=== PATIENT | female | born 1940 | race Caucasian/White ===

== ENCOUNTER 2020-05-25 04:45 | Inpatient (IN) | payer MEDICARE, OTHER, SELFPAY ==
[2020-05-25] VITALS (7 sets, daily range): BP systolic 120–146; BP diastolic 40–58; PULSE 71–90; RESP 16–20; TEMP 36.9–38.6; O2SAT 96–100; BMI 26.9; BMI 27.0
--- NOTE | 2020-05-25 03:58 | PCS.PANDOC ---
PANDEMIC DOCUMENTATION INITIATED: Date: 05/25/20 Time: 3027
--- NOTE | 2020-05-25 04:37 | HP.PCM_ITS ---
Problem List (1) UTI (urinary tract infection) Status: Acute (2) Generalized weakness Status: Acute History of Present Illness Date of Admission: 05/25/20 Chief Complaint: generalized weakness The patient is a 80 year old male patient who lives at home presented to the emergency room at [facility] due to generalized weakness and subtle confusion under the advice of her family. There she was tested for Covid and was negative but she was diagnosed with urinary tract infection. She denies chest pain shortness of breath no nausea or vomiting. She does have some mild left flank tenderness. Onset of her generalized weakness symptoms appears to be over the course of the past week. The patient is a questionable historian at this point. Other laboratory studies were unremarkable at outside hospital. She will be admitted for observation and management of urinary tract infection and evaluate her weakness after those are treated. Past Medical History Allergies No Known Allergies Allergy (Verified 05/25/20 04:03) Home Medications: Ambulatory Orders Medication Instructions Recorded Allopurinol [Zyloprim] 100 mg PO DAILYCM 05/25/20 Atenolol [Tenormin (beta vida)] 05/25/20 Dicyclomine HCl [Bentyl] 10 mg PO Q6H PRN PRN 05/25/20 Glipizide 5 mg PO DAILY 05/25/20 Hydrochlorothiazide [Hctz] 25 mg PO DAILY 05/25/20 Lisinopril [Zestril] 20 mg PO DAILY 05/25/20 Loperamide [Imodium] 4 mg PO Q4H PRN PRN 05/25/20 Sulfasalazine [Azulfidine] 1,000 mg PO DAILY 05/25/20 Warfarin [Coumadin (PBKC)] 5 mg PO DAILY 05/25/20 Smoking Status: Never smoker - *Family History Maternal History Items: No pertinent history Review of Systems Constitutional: Reports: Fever, Weakness. Denies: Chills, Weight Change HEENT: Denies: Head Aches, Sinus Congestion, Sinus Drainage Cardiovascular: Denies: Chest Pain, Palpitations Respiratory: Denies: Cough, Shortness of breath at rest, Sputum production Gastrointestinal: Denies: Abdominal Pain, Nausea, Vomiting Genitourinary: Reports: Dysuria, - - left flank soreness Musculoskeletal: Denies: Joint Pain, Joint Tenderness Skin: Denies: Rash, Wounds Neurological: Denies: Numbness, Tingling, Focal weakness Psychiatric: Denies: Anxiety, Depression, Homicidal Ideations, Suicidal Ideations Hematologic/ Lymphatic: Denies: Easy Bruising, Easy Bleeding VTE Information - Inpt Only VTE Present on Admission: No VTE Mechan Device Prophylaxis: SCD's, None VTE Pharm Prophylaxis ordered?: No - Physical Exam Vitals/I&O's: Vital Signs Temp Pulse Resp BP Pulse Ox 99.4 F H 71 18 130/57 H 100 05/25/20 03:56 05/25/20 03:56 05/25/20 03:56 05/25/20 03:56 05/25/20 03:56 Oxygen Delivery Method Room Air Weight: 162 lb 0.636 oz Body Mass Index (BMI) 26.9 General: Alert, Oriented x3, Cooperative, - - weak/tired HEENT: Atraumatic, Normocephalic Neck: Supple Lungs: Clear to auscultation, Normal air movement, No rhonchi, No wheeze, No rales Cardiovascular: Regular rate, Regular Rhythm, Normal S1, No murmurs Abdomen: Bowel Sounds Present, Soft, Non Tender, Tender - left flank mild Extremities: No edema Skin: No rashes Musculoskeletal: No Tenderness to Palpation of Joints or Extremities Neurological: Neuro grossly intact Psych/Mental Status: Normal Affect, Appropriate Assessment/Plan All Active Problems UTI (urinary tract infection) (Acute) Generalized weakness (Acute) Plan 1. Generalized weakness/UTI?admit patient to general medical floor for observation?IV Rocephin 1 g daily, will start IV fluid normal saline at 100 cc/h. Will receive Doug CBC BMP in the morning, I am informed patient has failed her bedside swallow evaluation and will be made n.p.o. at this time pending speech therapy evaluation. We will also consult case management for discharge planning. 2. Acute kidney injury?repeat basic metabolic panel to evaluate further 3. DVT prophylaxis?SCDs
[2020-05-25] MEDS: 0.9% Saline Lock 10 ML Syringe IV (05:16)
[2020-05-25] MEDS: 0.9% Normal Saline 1,000 ML 100 ML IV ×2 (05:16→16:43)
[2020-05-25 06:49] LABS: Absolute Lymphocyte Count 0.64 X10^3/uL (0.83-4.51); Absolute Neutrophil Count 2.3 X10^3/uL (2.0-7.7); Basophil# 0.02 X10^3/uL; Basophil% 0.6 % (0-1); Eosinophil# 0.01 X10^3/uL; Eosinophils% 0.3 % (0-5); Hematocrit 29.9 % (37-47); Hemoglobin 9.8 g/dL (12.0-15.0); Lymphocyte # 0.64 X10^3/ul (4.0); Lymphocyte % 18.6 % (19-41); Mean Corp Hgb Conc 32.8 g/dL (32-36); Mean Corpuscular Hgb 31.5 pg (27.0-32.0); Mean Corpuscular Volume 96.1 fL (81-99); Mean Platelet Vol. 9.4 fl (6.2-12.0); Monocyte# 0.48 X10^3/uL; NRBC Flagged by Analyzer 0 % (0-5); Neutrophil # 2.25 X10^3/uL (2.7-7.7); Neutrophil % 65.3 % (47-70); Platelet Count 159 K/mm3 (150-450); RBC Distribution Width SD 49.3 fl (35.1-43.9); Red Blood Count 3.11 M/mm3 (4.2-5.4); White Blood Count 3.4 K/mm3 (4.4-11.0)
[2020-05-25 07:10] LABS: International Normalized Ratio 1.4; Prothrombin Time (Protime)PT. 16.7 SECONDS (11.7-14.9)
[2020-05-25 07:16] LABS: Anion Gap 8 (5-15); BUN 37 mg/dL (7-18); BUN/Creat Ratio 24.2 RATIO (10-20); Calcium,Total 8.5 mg/dL (8.5-10.1); Chloride 112 mmol/L (98-107); Creatinine, Serum 1.53 mg/dL (0.55-1.02); EST Glomerular Filtration Rate 35 mL/min (>60); Est Glom Filt Rate - Afr Amer 42 mL/min (>60); Estimated Creatinine Clearance 25.95 ml/min; Glucose 112 mg/dL (74-106); Potassium 4.2 mmol/L (3.5-5.1); Sodium Level 140 mmol/L (136-145)
--- NOTE | 2020-05-25 07:39 | PCM.PN.BLA ---
Progress Note Patient is an 80-year-old lady admitted with progressive generalized weakness patient had apparently been treated for UTI as outpatient. Kidney function was impaired at the time of admission 1. Adult failure to thrive 2. Acute cystitis 3. Acute kidney injury 4. Essential hypertension 5. Diabetes mellitus type 2 6. Gout 7. Systemic use of anticoagulation STROKE Vital Signs/Narrative: Vital Signs Temp Pulse Resp BP Pulse Ox 05/25/20 03:56 99.4 F H 71 18 130/57 H 100
--- NOTE | 2020-05-25 09:12 | NURSING ---
Bladder scan done prior to cath pt for a urine specimen, bladder is empty, she had a very wet attends when she was assisted to the bsc.
[2020-05-25] MEDS: Acetaminophen 325 MG Tablet 650 MG PO ×2 (10:02→17:37)
[2020-05-25] MEDS: Allopurinol 100 MG Tablet PO (10:03)
--- NOTE | 2020-05-25 10:28 | PN_ITS ---
Patient Problems: Active and Suspected Problems UTI (urinary tract infection) (Acute) Generalized weakness (Acute) Reason for Visit: Acute cystitis Acute kidney injury Physical deconditioning Diarrhea Subjective: Patient is an 80-year-old lady admitted with progressive generalized weakness patient had apparently been treated for UTI as outpatient. Kidney function was impaired at the time of admission Objective: GENERAL: cooperative HEENT: Atraumatic; EYES; Anicteric, Normal Conjunctiva NECK; supple, normal thyroid, RESPIRATORY: Diminished to auscultation CARDIOVASCULAR: Regular S1 S2, GI: soft, normoactive bowel sounds, : No Renal angle tenderness; EXTREMITIES: No edema, no clubbing, MUSCULOSKELETAL: no muscle waisting NEURO: Awake; no lateralizing signs. SKIN: No Rash PSYCH; Flat affect Vitals/I&O's: Vital Signs Temp Pulse Resp BP Pulse Ox 101.4 F H 90 20 H 140/47 H 97 05/25/20 08:55 05/25/20 08:59 05/25/20 08:55 05/25/20 08:55 05/25/20 08:55 Oxygen Delivery Method Room Air Weight: 73.5 kg Body Mass Index (BMI) 26.9 Laboratory Results 05/25/20 06:30: WBC 3.4 L, RBC 3.11 L, Hgb 9.8 L, Hct 29.9 L, MCV 96.1, MCH 31.5, MCHC 32.8, RDW Std Deviation 49.3 H, RDW Coeff of Brisa 14.0, Plt Count 159, MPV 9.4, Immature Gran % (Auto) 1.200 H, Neut % (Auto) 65.3, Lymph % (Auto) 18.6 L, Wolfe % (Auto) 14.0 H, Eos % (Auto) 0.3, Baso % (Auto) 0.6, Absolute Neuts (auto) 2.3, Absolute Lymphs (auto) 0.64 L, Nucleated RBC % 0 05/25/20 06:30: PT 16.7 H, INR 1.4 05/25/20 06:30: Sodium 140, Potassium 4.2, Chloride 112 H, Carbon Dioxide 20.0 L , Anion Gap 8, BUN 37 H, Creatinine 1.53 H, Estim Creat Clear Calc 25.95, Est GFR (MDRD) Af Amer 42 L, Est GFR (MDRD) Non-Af 35 L, BUN/Creatinine Ratio 24.2 H , Glucose 112 H, Calcium 8.5 Current Medications Acetaminophen (Acetaminophen 325 Mg Tablet) 650 mg PO Q6H PRN PRN PRN Reason: Pain 1-10 or Fever Last Admin: 05/25/20 10:02 Dose: 650 mg Documented by: Allopurinol (Allopurinol 100 Mg Tablet) 100 mg PO DAILYCM [facility] Last Admin: 05/25/20 10:03 Dose: 100 mg Documented by: Sodium Chloride () 1,000 mls @ 100 mls/hr IV .Q10H [facility] Last Admin: 05/25/20 05:16 Dose: 100 mls/hr Documented by: Sodium Chloride () 250 mls @ 15 mls/hr IV .[id number] PRN PRN Reason: Saline Flush Sodium Chloride () 250 mls @ 15 mls/hr IV .[id number] PRN PRN Reason: Additional IVPB Infusion Ceftriaxone Sodium (Rocephin) 1 gm in 50 mls @ 100 mls/hr IV Q24@2200 [facility] Sodium Chloride (0.9% Saline Lock 10 Ml Syringe) 10 - 40 ml IV UD PRN PRN Reason: SALINE FLUSH Last Admin: 05/25/20 05:16 Dose: 10 ml Documented by: Sulfasalazine (Sulfasalazine 500 Mg Tablet) 1,000 mg PO DAILY [facility] Warfarin Sodium (Warfarin 5 Mg Tablet) 5 mg PO DAILY@1700 [facility] STROKE Vital Signs/Narrative: Vital Signs Temp Pulse Resp BP Pulse Ox 05/25/20 08:59 90 05/25/20 08:55 101.4 F H 85 20 H 140/47 H 97 Medical Necessity - Tobacco Use Smoking Status: Never smoker Assessment/Plan All Active Problems UTI (urinary tract infection) (Acute) Generalized weakness (Acute) Patient is an 80-year-old lady admitted with progressive generalized weakness patient had apparently been treated for UTI as outpatient. Kidney function was impaired at the time of admission 1. Acute cystitis ?Patient started on Rocephin blood and urine culture sent with plans to adjust or continue current antibiotics based on culture result - 2. Kidney injury ?Patient started on IV hydration with subsequent monitoring of electrolyte 3. Diarrhea ?Patient being resuscitated with IV fluids stool sent to rule out C. difficile 4. Hypertension - Blood pressure controlled, home medications continued with dose adjustment as needed 5. Diabetes mellitus type II -patient's oral hypoglycemics held. Placed on long acting insulin, Accu-Cheks a.c. and at bedtime and covered with sliding scale insulin 6. Gout ?patient is on allopurinol did continue 7. Anemia - Secondary to chronic disorder monitoring H&H and transfuse if patient becomes symptomatic or hemoglobin falls below 7 8. History of previous PE/DVT ?Patient is on systemic anticoagulation with Coumadin INR is therapeutic 9. Physical deconditioning - Requested for PT OT eval and social media content specialist to assist with discharge planning Advance planning; did discuss with the patient regarding advanced directives as well as CODE STATUS. Did explain the various scenarios involved ( FULL CODE, DNR CCA, DNR CCA with no intubation, and DNR CC and what each meant) patient elected to full code with CPR and intubation if warranted. Order was placed. Time spent on discussion 18 minutes. Inpatient E&M: 87918 Subs Hosp L3 Procedures: 07943 Advncd Care Plan 30 Min
[2020-05-25 10:58] LABS: Mucous, Urine 0 SEEN /hpf (<or=2+)
[2020-05-25 11:35] LABS: Color, Urine Yellow (Yellow); Glucose, Dipstick Normal (Normal); Ketone-Dipstick Negative (Negative); Leukocyte Esterase-Dipstick 500 /ul (Negative); Nitrite-Dipstick Negative (Negative); Occult Blood-Urine 150 /ul (Negative); Protein-Dipstick 100 mg/dl (Negative); Urine Bilirubin Dipstick Negative (Negative); Urine Clarity Sl. Cloudy (Clear); Urine Urobilinogen Normal (Normal)
[2020-05-25 11:48] LABS: Bacteria 1+ /hpf (None Seen); Red Blood Cells-Urine 10-25 SEEN /hpf (0-5); Squamous Epithelial Cells - UA 0-5 SEEN /hpf (5-10); White Blood Cells 25-50 SEEN /hpf (0-5)
[2020-05-25] MEDS: Ceftriaxone 1 GM/50 ML BAG IV (21:52)
[2020-05-26] VITALS (9 sets, daily range): BP systolic 125–160; BP diastolic 41–79; PULSE 89–105; RESP 13–18; TEMP 37.2–39.2; O2SAT 94–97
[2020-05-26] MEDS: Acetaminophen 325 MG Tablet 650 MG PO ×3 (03:47→17:41)
[2020-05-26 05:46] LABS: Hematocrit 28.8 % (37-47); Hemoglobin 9.5 g/dL (12.0-15.0); Mean Corpuscular Hgb 31.5 pg (27.0-32.0); Mean Corpuscular Volume 95.4 fL (81-99); Mean Platelet Vol. 9.5 fl (6.2-12.0); Platelet Count 141 K/mm3 (150-450); RBC Distribution Width CV 13.8 % (11.6-14.6); Red Blood Count 3.02 M/mm3 (4.2-5.4); White Blood Count 2.8 K/mm3 (4.4-11.0)
[2020-05-26] MEDS: 0.9% Normal Saline 1,000 ML 100 ML IV ×2 (05:56→21:50)
[2020-05-26 05:57] LABS: International Normalized Ratio 1.4; Prothrombin Time (Protime)PT. 16.4 SECONDS (11.7-14.9)
[2020-05-26 06:13] LABS: Anion Gap 8 (5-15); BUN 29 mg/dL (7-18); Calcium,Total 7.9 mg/dL (8.5-10.1); Chloride 113 mmol/L (98-107); Creatinine, Serum 1.38 mg/dL (0.55-1.02); EST Glomerular Filtration Rate 39 mL/min (>60); Est Glom Filt Rate - Afr Amer 47 mL/min (>60); Estimated Creatinine Clearance 28.77 ml/min; Glucose 137 mg/dL (74-106); Magnesium 1.3 mg/dL (1.6-2.6); Potassium 3.9 mmol/L (3.5-5.1); Sodium Level 139 mmol/L (136-145)
--- NOTE | 2020-05-26 07:33 | PCM.PN.HOSP ---
Patient Problems: Active and Suspected Problems UTI (urinary tract infection) (Acute) Generalized weakness (Acute) Reason for Visit: Acute cystitis Acute kidney injury Physical deconditioning Diarrhea Subjective: Patient is an 80-year-old lady admitted with progressive generalized weakness patient had apparently been treated for UTI as outpatient. Kidney function was impaired at the time of admission 05/26/2020; patient seen more interactive compared to the previous day. Patient did experience low-grade fever during the night. Hemoglobin down to 9.5 from 9.8. Slight improvement in kidney function magnesium significantly low at 1.3 Objective: GENERAL: cooperative HEENT: Atraumatic; EYES; Anicteric, Normal Conjunctiva NECK; supple, normal thyroid, RESPIRATORY: Diminished to auscultation CARDIOVASCULAR: Regular S1 S2, GI: soft, normoactive bowel sounds, : No Renal angle tenderness; EXTREMITIES: No edema, no clubbing, MUSCULOSKELETAL: no muscle waisting NEURO: Awake; no lateralizing signs. SKIN: No Rash PSYCH; Flat affect Vitals/I&O's: Vital Signs Temp Pulse Resp BP Pulse Ox 100.0 F H 93 18 155/47 H 94 05/26/20 05:00 05/26/20 03:57 05/26/20 03:57 05/26/20 05:00 05/26/20 03:57 Oxygen Delivery Method Room Air Weight: 73.5 kg Body Mass Index (BMI) 26.9 Intake and Output for Last 24 Hours 05/24/20 05/25/20 05/26/20 23:59 23:59 23:59 Intake Total 1565 / 1865 985 / 985 Output Total 300 / 300 Balance 1265 / 1565 985 / 985 Microbiology Past 72 Hours 05/25/20 09:00 Stool C. difficile DNA Amplification - Final Laboratory Results 05/25/20 10:48: Urine Color Yellow, Urine Clarity Sl. Cloudy, Urine pH 5.0, Ur Specific [place] 1.020, Urine Protein 100 H, Urine Glucose (UA) Normal, Urine Ketones Negative, Urine Occult Blood 150 H, Urine Nitrite Negative, Urine Bilirubin Negative, Urine Urobilinogen Normal, Ur Leukocyte Esterase 500 H, Urine RBC 10-25 SEEN, Urine WBC 25-50 SEEN, Ur Squamous Epith Cells 0-5 SEEN, Urine Bacteria 1+, Urine Mucus 0 SEEN 05/26/20 05:20: WBC 2.8 L, RBC 3.02 L, Hgb 9.5 L, Hct 28.8 L, MCV 95.4, MCH 31.5, MCHC 33.0, RDW Std Deviation 48.0 H, RDW Coeff of Brisa 13.8, Plt Count 141 L, MPV 9.5 05/26/20 05:20: PT 16.4 H, INR 1.4 05/26/20 05:20: Sodium 139, Potassium 3.9, Chloride 113 H, Carbon Dioxide 18.0 L, Anion Gap 8, BUN 29 H, Creatinine 1.38 H, Estim Creat Clear Calc 28.77, Est GFR (MDRD) Af Amer 47 L, Est GFR (MDRD) Non-Af 39 L, BUN/Creatinine Ratio 21.0 H, Glucose 137 H, Calcium 7.9 L, Magnesium 1.3 L Current Medications Acetaminophen (Acetaminophen 325 Mg Tablet) 650 mg PO Q6H PRN PRN PRN Reason: Pain 1-10 or Fever Last Admin: 05/26/20 03:47 Dose: 650 mg Documented by: Allopurinol (Allopurinol 100 Mg Tablet) 100 mg PO DAILYCM [facility] Last Admin: 05/25/20 10:03 Dose: 100 mg Documented by: Sodium Chloride () 1,000 mls @ 100 mls/hr IV .Q10H [facility] Last Admin: 05/26/20 05:56 Dose: 100 mls/hr Documented by: Sodium Chloride () 250 mls @ 15 mls/hr IV .[id number] PRN PRN Reason: Saline Flush Sodium Chloride () 250 mls @ 15 mls/hr IV .[id number] PRN PRN Reason: Additional IVPB Infusion Ceftriaxone Sodium (Rocephin) 1 gm in 50 mls @ 100 mls/hr IV Q24@2200 [facility] Last Infusion: 05/25/20 22:22 Dose: Infused Documented by: Nutritional Formula (Lactose Free) (Ensure Enlive 120 Ml Liquid) 120 ml PO 4X/DAY [facility] Sodium Chloride (0.9% Saline Lock 10 Ml Syringe) 10 - 40 ml IV UD PRN PRN Reason: SALINE FLUSH Last Admin: 05/25/20 05:16 Dose: 10 ml Documented by: Sulfasalazine (Sulfasalazine 500 Mg Tablet) 1,000 mg PO DAILYCM [facility] Warfarin Sodium (Warfarin 5 Mg Tablet) 5 mg PO DAILY@1700 [facility] Last Admin: 05/25/20 16:44 Dose: 5 mg Documented by: STROKE Vital Signs/Narrative: Vital Signs Temp Pulse Resp BP BP Pulse Ox 05/26/20 05:00 100.0 F H 155/47 H 05/26/20 03:57 101.6 F H 93 18 160/79 H 94 Medical Necessity - Tobacco Use Smoking Status: Never smoker Assessment/Plan All Active Problems UTI (urinary tract infection) (Acute) Generalized weakness (Acute) Patient is an 80-year-old lady admitted with progressive generalized weakness patient had apparently been treated for UTI as outpatient. Kidney function was impaired at the time of admission 1. Acute cystitis ?Patient started on Rocephin blood and urine culture sent with plans to adjust or continue current antibiotics based on culture result -05/26/2020; patient continues to experience fever. Urine and blood culture sent results pending 2. Acute kidney injury ?Patient started on IV hydration with subsequent monitoring of electrolyte -05/26/2020; patient seen no significant improvement in kidney function 3. Diarrhea ?Patient being resuscitated with IV fluids stool sent to rule out C. difficile -05/26/2020; stool for C. difficile since came back negative 4. Hypertension - Blood pressure controlled, home medications continued with dose adjustment as needed 5. Diabetes mellitus type II -patient's oral hypoglycemics held. Placed on long acting insulin, Accu-Cheks a.c. and at bedtime and covered with sliding scale insulin 6. Gout ?patient is on allopurinol did continue 7. Anemia - Secondary to chronic disorder monitoring H&H and transfuse if patient becomes symptomatic or hemoglobin falls below 7 8. History of previous PE/DVT ?Patient is on systemic anticoagulation with Coumadin INR is subtherapeutic -05/26/2020: Adjusted Coumadin dose subsequent monitoring of INR ordered 9. Physical deconditioning - Requested for PT OT eval and criminal justice social worker to assist with discharge planning 10. Hypomagnesemia ?Corrected per protocol follow-up magnesium ordered Inpatient E&M: 16278 [facility] Hosp L3
[2020-05-26] MEDS: Allopurinol 100 MG Tablet PO (08:48)
[2020-05-26] MEDS: sulfaSALAzine 500 MG Tablet 1000 MG PO (08:49)
[2020-05-26] MEDS: Magnesium Sulfate 4gm/100mL 4 GM/100 ML IV.SOLN. IV (14:19)
--- NOTE | 2020-05-26 15:04 | CASEMGMT ---
JOSE SIMS Face to Face with patient for initial transition planning/care coordination assessment. JOSE SIMS introduced self and role at [facility]. Patient is slightly confused. JOSE SIMS spoke with son and HPAbhi BO who was willing to participate in assessment and is able to answer all questions appropriately. Care providers, pharmacy, and demographics verified. Parveen Moe wishes to discharge home and would like [facility] for therapy at home. Parveen Moewabennie provided a list of C providers including quality and resource use data and consistent with the patient?s preferred geographic region, medical needs, and insurance network. Abhi's providers are [facility] or [facility]. Patient states he has no further needs or concerns at this time. CM to follow for discharge planning needs that may arise. PCP: Peña Specialists: none Preferred Pharmacy: [facility] Insurance: [employer], [employer] Prescription Benefit: yes Living Will/HPOA: yes, parveen Moe Dial HPOA LNOK: , son Living Arrangements: Patient lives in 2 story home with 5 steps and railing to enter the home. Patient is independent at home Transportation: or son DME/HHC: Patient has shower chair, raised toilet, grab bars, walker at home. No previous HHC. Patient has been to [facility] in the past. Referral sent to [facility] and patient is out of their service area. JOSE SIMS sent referral to [facility] and awaiting call back. Disposition Plan: Patient to discharge home with HH, family support, and follow-up plans in place. Nellie BARRAGAN, RN, CM
--- NOTE | 2020-05-26 16:11 | CASEMGMT ---
JOSE SIMS received call back from [facility] and they are out of service area. Referral also sent to [facility] and they are out of service area. JOSE SIMS updated korina Moe regarding difficulty with [facility] setup due to patient's geographical location. Korina Moe agreeable to any [facility] in-network with insurance that can go to area. JOSE SIMS sent referral to [facility] and they are able to service the patient and bill through patient's insurance. JOSE SIMS sent referral to [facility] and they are able to accept the patient. JOSE SIMS updated korina Moe regarding home therapy setup. Korina Moe had no further questions or concerns at this time.
[2020-05-26 21:50] LABS: Bedside Glucose 206 mg/dL (70-110)
[2020-05-26] MEDS: Ceftriaxone 1 GM/50 ML BAG IV (21:50)
[2020-05-26] MEDS: Magnesium Chloride 64 MG Delay Rel.Tablet 128 MG PO (21:51)
[2020-05-26] MEDS: Insulin Lispro 100 UNIT/ML INSULN.PEN SC (22:46)
[2020-05-27 03:00] VITALS: BP 160/36; PULSE 97; RESP 16; TEMP 37.9; O2SAT 100
[2020-05-27] MEDS: Acetaminophen 325 MG Tablet 650 MG PO ×2 (03:19→18:23)
[2020-05-27 05:35] LABS: Hematocrit 26.5 % (37-47); Hemoglobin 8.7 g/dL (12.0-15.0); Mean Corp Hgb Conc 32.8 g/dL (32-36); Mean Corpuscular Hgb 31.3 pg (27.0-32.0); Mean Corpuscular Volume 95.3 fL (81-99); Mean Platelet Vol. 9.6 fl (6.2-12.0); Platelet Count 117 K/mm3 (150-450); RBC Distribution Width CV 14.1 % (11.6-14.6); RBC Distribution Width SD 49.1 fl (35.1-43.9); Red Blood Count 2.78 M/mm3 (4.2-5.4); White Blood Count 3.1 K/mm3 (4.4-11.0)
[2020-05-27 05:46] LABS: International Normalized Ratio 1.3; Prothrombin Time (Protime)PT. 15.7 SECONDS (11.7-14.9)
[2020-05-27 06:05] LABS: Anion Gap 7 (5-15); BUN 23 mg/dL (7-18); BUN/Creat Ratio 18.3 RATIO (10-20); Calcium,Total 7.8 mg/dL (8.5-10.1); Chloride 113 mmol/L (98-107); Creatinine, Serum 1.26 mg/dL (0.55-1.02); EST Glomerular Filtration Rate 43 mL/min (>60); Est Glom Filt Rate - Afr Amer 52 mL/min (>60); Estimated Creatinine Clearance 31.51 ml/min; Glucose 162 mg/dL (74-106); Magnesium 2.3 mg/dL (1.6-2.6); Potassium 3.9 mmol/L (3.5-5.1); Sodium Level 139 mmol/L (136-145)
[2020-05-27 06:10] VITALS: BP 139/48; PULSE 92; RESP 16; TEMP 37.2; O2SAT 94
[2020-05-27] MEDS: Insulin Lispro 100 UNIT/ML INSULN.PEN SC ×4 (06:16→21:43)
[2020-05-27 06:50] LABS: Bedside Glucose 164 mg/dL (70-110)
[2020-05-27 08:00] VITALS: BP 141/58; PULSE 88; RESP 18; TEMP 37.3; O2SAT 95
--- NOTE | 2020-05-27 08:18 | PCM.PN.HOSP ---
Patient Problems: Active and Suspected Problems UTI (urinary tract infection) (Acute) Generalized weakness (Acute) Reason for Visit: Acute cystitis Acute kidney injury Physical deconditioning Diarrhea Subjective: Patient is an 80-year-old lady admitted with progressive generalized weakness patient had apparently been treated for UTI as outpatient. Kidney function was impaired at the time of admission 05/26/2020; patient seen more interactive compared to the previous day. Patient did experience low-grade fever during the night. Hemoglobin down to 9.5 from 9.8. Slight improvement in kidney function magnesium significantly low at 1.3 05/27/2020. Patient continues to experience low-grade fever. Urine culture so far positive for gram-negative rods. [place] count is less than thousand however patient had been started on treatment prior to obtaining cultures. Patient also underwent COVID-19 assay the day prior which came back negative Objective: GENERAL: cooperative HEENT: Atraumatic; EYES; Anicteric, Normal Conjunctiva NECK; supple, normal thyroid, RESPIRATORY: Diminished to auscultation CARDIOVASCULAR: Regular S1 S2, GI: soft, normoactive bowel sounds, : No Renal angle tenderness; EXTREMITIES: No edema, no clubbing, MUSCULOSKELETAL: no muscle waisting NEURO: Awake; no lateralizing signs. SKIN: No Rash PSYCH; Flat affect Vitals/I&O's: Vital Signs Temp Pulse Resp BP Pulse Ox 99.0 F 92 16 139/48 H 94 05/27/20 06:10 05/27/20 06:10 05/27/20 06:10 05/27/20 06:10 05/27/20 06:10 Oxygen Delivery Method Room Air Weight: 73.5 kg Body Mass Index (BMI) 26.9 Intake and Output for Last 24 Hours 05/25/20 05/26/20 05/27/20 23:59 23:59 23:59 Intake Total 1565 / 1865 2635.00 / 2835.00 400 / 400 Output Total 300 / 300 Balance 1265 / 1565 2635.00 / 2835.00 400 / 400 Microbiology Past 72 Hours 05/25/20 10:38 Blood Culture (Wb) - Right Wrist Blood Culture - Preliminary No growth in 48 hours. 05/25/20 10:32 Blood Culture (Wb) - Anticubital Left Blood Culture - Preliminary No growth in 48 hours. 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 difficile DNA Amplification - Final Laboratory Results 05/26/20 14:57: COVID-19 (LAKSHMI) Not Detected 05/26/20 21:44: POC Glucose 206 H 05/27/20 05:20: WBC 3.1 L, RBC 2.78 L, Hgb 8.7 L, Hct 26.5 L, MCV 95.3, MCH 31.3, MCHC 32.8, RDW Std Deviation 49.1 H, RDW Coeff of Brisa 14.1, Plt Count 117 L, MPV 9.6 05/27/20 05:20: PT 15.7 H, INR 1.3 05/27/20 05:20: Sodium 139, Potassium 3.9, Chloride 113 H, Carbon Dioxide 19.0 L, Anion Gap 7, BUN 23 H, Creatinine 1.26 H, Estim Creat Clear Calc 31.51, Est GFR (MDRD) Af Amer 52 L, Est GFR (MDRD) Non-Af 43 L, BUN/Creatinine Ratio 18.3, Glucose 162 H, Calcium 7.8 L, Magnesium 2.3 05/27/20 06:14: POC Glucose 164 H Current Medications Acetaminophen (Acetaminophen 325 Mg Tablet) 650 mg PO Q6H PRN PRN PRN Reason: Pain 1-10 or Fever Last Admin: 05/27/20 03:19 Dose: 650 mg Documented by: Allopurinol (Allopurinol 100 Mg Tablet) [facility] Last Admin: 05/26/20 08:48 Dose: 100 mg Documented by: Dextrose (Dextrose 50%-Water 25 Gm/50 Ml Disp.Syrin) 0 gm IV X1 PRN; Protocol PRN Reason: Hypoglycemia Glucagon (Glucagon 1 Mg/Ml Syringe) 1 mg IM .X1 PRN PRN Reason: Hypoglycemia Sodium Chloride () 1,000 mls @ 100 mls/hr IV .Q10H [facility] Last Infusion: 05/26/20 22:20 Dose: 100 mls/hr Documented by: Sodium Chloride () 250 mls @ 15 mls/hr IV .[id number] PRN PRN Reason: Saline Flush Sodium Chloride () 250 mls @ 15 mls/hr IV .[id number] PRN PRN Reason: Additional IVPB Infusion Ceftriaxone Sodium (Rocephin) 1 gm in 50 mls @ 100 mls/hr IV Q24@2200 [facility] Last Infusion: 05/26/20 22:20 Dose: Infused Documented by: Insulin Human Lispro (Insulin Lispro 100 Unit/Ml Insuln.Pen) 0 unit SC ACHS [facility]; Protocol Last Admin: 05/27/20 06:16 Dose: 1 u Documented by: Magnesium Chloride (Magnesium Chloride 64 Mg Delay Rel.Tablet) 128 mg PO BID [facility] Last Admin: 05/26/20 21:51 Dose: 128 mg Documented by: Nutritional Formula (Lactose Free) (Glucerna Shake 120 Ml Liquid) 120 ml PO 4X/DAY [facility] Sodium Chloride (0.9% Saline Lock 10 Ml Syringe) 10 - 40 ml IV UD PRN PRN Reason: SALINE FLUSH Last Admin: 05/25/20 05:16 Dose: 10 ml Documented by: Sulfasalazine (Sulfasalazine 500 Mg Tablet) 1,000 mg PO DAILYCM [facility] Last Admin: 05/26/20 08:49 Dose: 1,000 mg Documented by: Warfarin Sodium (Warfarin 5 Mg Tablet) 5 mg PO DAILY@1700 [facility] STROKE Vital Signs/Narrative: Vital Signs Temp Pulse Resp BP Pulse Ox 05/27/20 06:10 99.0 F 92 16 139/48 H 94 Medical Necessity - Tobacco Use Smoking Status: Never smoker Assessment/Plan All Active Problems UTI (urinary tract infection) (Acute) Generalized weakness (Acute) Patient is an 80-year-old lady admitted with progressive generalized weakness patient had apparently been treated for UTI as outpatient. Kidney function was impaired at the time of admission 1. Acute cystitis ?Patient started on Rocephin blood and urine culture sent with plans to adjust or continue current antibiotics based on culture result -05/26/2020; patient continues to experience fever. Urine and blood culture sent results pending - 05/27/2020. Patient continues to experience low-grade fever. Urine culture so far positive for gram-negative rods. [place] count is less than thousand however patient had been started on treatment prior to obtaining cultures. Patient also underwent COVID-19 assay the day prior which came back negative 2. Acute kidney injury ?Patient started on IV hydration with subsequent monitoring of electrolyte -05/26/2020; patient seen no significant improvement in kidney function -05/27/2020; patient creatinine down to 1.26. Do suspect some chronicity to patient's impaired kidney function 3. Diarrhea ?Patient being resuscitated with IV fluids stool sent to rule out C. difficile -05/26/2020; stool for C. difficile since came back negative 4. Hypertension - Blood pressure controlled, home medications continued with dose adjustment as needed 5. Diabetes mellitus type II -patient's oral hypoglycemics held. Placed on long acting insulin, Accu-Cheks a.c. and at bedtime and covered with sliding scale insulin 6. Gout ?patient is on allopurinol did continue 7. Anemia - Secondary to chronic disorder monitoring H&H and transfuse if patient becomes symptomatic or hemoglobin falls below 7 8. History of previous PE/DVT ?Patient is on systemic anticoagulation with Coumadin INR is subtherapeutic -05/26/2020: Adjusted Coumadin dose subsequent monitoring of INR ordered 9. Physical deconditioning - Requested for PT OT eval and social media marketing specialist to assist with discharge planning 10. Hypomagnesemia ?Corrected per protocol follow-up magnesium ordered Inpatient E&M: 61680 Subs Hosp L2
[2020-05-27] MEDS: 0.9% Normal Saline 1,000 ML 100 ML IV ×2 (09:54→20:12)
[2020-05-27] MEDS: Magnesium Chloride 64 MG Delay Rel.Tablet 128 MG PO ×2 (10:39→21:12)
[2020-05-27] MEDS: Allopurinol 100 MG Tablet PO (10:39)
[2020-05-27] MEDS: sulfaSALAzine 500 MG Tablet 1000 MG PO (10:39)
[2020-05-27] MEDS: Glucerna Shake 120 ML LIQUID PO ×4 (10:48→21:13)
[2020-05-27 12:06] LABS: Bedside Glucose 250 mg/dL (70-110)
[2020-05-27 14:30] VITALS: BP 155/48; PULSE 95; RESP 18; TEMP 37.4; O2SAT 96
[2020-05-27] MEDS: Menthol/Lanolin/Calamine/Znox 113 GM Tube 1 APPLIC TOPICAL ×2 (15:42→21:13)
--- NOTE | 2020-05-27 16:04 | NURSING ---
spoke with [facility]... they will run sensitivity on urine culture per Dr. Espinoza
[2020-05-27 18:00] VITALS: TEMP 38.2
[2020-05-27 18:41] LABS: Bedside Glucose 160 mg/dL (70-110)
--- NOTE | 2020-05-27 18:55 | NURSING ---
reviewed and agree with all documentation by BRIAN Gonzalez
[2020-05-27 20:15] VITALS: BP 169/67; PULSE 100; RESP 18; TEMP 37.2; O2SAT 94
[2020-05-27] MEDS: Ceftriaxone 1 GM/50 ML BAG IV (21:12)
[2020-05-27 22:35] LABS: Bedside Glucose 189 mg/dL (70-110)
[2020-05-28 02:15] VITALS: BP 158/67; PULSE 74; RESP 18; TEMP 36.6; O2SAT 98
[2020-05-28] MEDS: Menthol/Lanolin/Calamine/Znox 113 GM Tube 1 APPLIC TOPICAL (06:34)
[2020-05-28 06:40] LABS: Bedside Glucose 117 mg/dL (70-110)
[2020-05-28 06:55] LABS: Hematocrit 25.3 % (37-47); Hemoglobin 8.2 g/dL (12.0-15.0); Mean Corp Hgb Conc 32.4 g/dL (32-36); Mean Corpuscular Hgb 31.1 pg (27.0-32.0); Mean Corpuscular Volume 95.8 fL (81-99); Mean Platelet Vol. 9.9 fl (6.2-12.0); Platelet Count 118 K/mm3 (150-450); RBC Distribution Width CV 14.2 % (11.6-14.6); Red Blood Count 2.64 M/mm3 (4.2-5.4); White Blood Count 4.3 K/mm3 (4.4-11.0)
[2020-05-28 07:10] LABS: International Normalized Ratio 1.3
[2020-05-28 07:17] LABS: Anion Gap 6 (5-15); BUN 18 mg/dL (7-18); BUN/Creat Ratio 18.7 RATIO (10-20); Chloride 117 mmol/L (98-107); Creatinine, Serum 0.96 mg/dL (0.55-1.02); EST Glomerular Filtration Rate 59 mL/min (>60); Est Glom Filt Rate - Afr Amer 72 mL/min (>60); Estimated Creatinine Clearance 41.36 ml/min; Glucose 117 mg/dL (74-106); Potassium 3.7 mmol/L (3.5-5.1); Sodium Level 143 mmol/L (136-145)
--- NOTE | 2020-05-28 07:40 | DCINST_ITS ---
- Discharge Diagnoses Current Active Problems: Current Active and Chronic Problems UTI (urinary tract infection) (Acute) Generalized weakness (Acute) You will use the following diet at home:: No restrictions Discharge Activity: Return to Normal Activity Allergies/Adverse Reactions: Allergies No Known Allergies Allergy (Verified 05/25/20 04:03) Medications to take at Discharge Allopurinol [Zyloprim] 100 mg PO DAILYCM 05/25/20 Atenolol [Tenormin (beta vida)] 05/25/20 Dicyclomine HCl [Bentyl] 10 mg PO Q6H PRN PRN 05/25/20 Lisinopril [Zestril] 20 mg PO DAILY 05/25/20 Loperamide [Imodium] 4 mg PO Q4H PRN PRN 05/25/20 Sulfasalazine [Azulfidine] 1,000 mg PO DAILY 05/25/20 Warfarin [Coumadin] 5 mg PO DAILY 05/25/20 Amlodipine [Norvasc] 10 mg PO DAILY #60 tab 05/28/20 Cefdinir [Omnicef [equiv]] 300 mg PO Q12H #10 cap 05/28/20 The following prescriptions were given: Amlodipine [Norvasc] 10 mg PO DAILY #60 tab Transmission Status: Received by [facility] Cefdinir [Omnicef [equiv]] 300 mg PO Q12H #10 cap Transmission Status: Received by [facility]24 Primary Care Physician: Paresh Pompa MD [Primary Care Provider] - Please follow up with your Primary Care Physician in: in 2 weeks Test Results: Test results from this visit will be discussed in further detail at your follow- up appointment, if applicable. Proposed Discharge Date: 05/28/20
[2020-05-28 08:00] VITALS: PULSE 90
[2020-05-28 08:15] VITALS: BP 157/61; PULSE 90; RESP 18; TEMP 36.7; O2SAT 95
[2020-05-28] MEDS: sulfaSALAzine 500 MG Tablet 1000 MG PO (08:46)
[2020-05-28] MEDS: Allopurinol 100 MG Tablet PO (08:46)
[2020-05-28] MEDS: 0.9% Normal Saline 1,000 ML 100 ML IV (08:46)
[2020-05-28] MEDS: Magnesium Chloride 64 MG Delay Rel.Tablet 128 MG PO (08:47)
[2020-05-28 10:47] VITALS: BP 121/61; PULSE 86; RESP 16; TEMP 36.7; O2SAT 96
--- NOTE | 2020-05-28 10:47 | PCM.DC.SUM ---
Discharge Date and Diagnosis - Problem List Patient Problems: Active and Suspected Problems UTI (urinary tract infection) (Acute) Generalized weakness (Acute) Date of Admission: 05/25/20 Date of Discharge: 05/28/20 - Primary Discharge Diagnosis Acute Problems: Active Problems UTI (urinary tract infection) (Acute) Generalized weakness (Acute) Hospital Course and Treatment Summary of Care Provided: Patient is an 80-year-old lady admitted with progressive generalized weakness patient had apparently been treated for UTI as outpatient. Kidney function was impaired at the time of admission 1. Acute cystitis ?Patient started on Rocephin blood and urine culture sent with plans to adjust or continue current antibiotics based on culture result -05/26/2020; patient continues to experience fever. Urine and blood culture sent results pending -05/27/2020. Patient continues to experience low-grade fever. Urine culture so far positive for gram-negative rods. [place] count is less than thousand however patient had been started on treatment prior to obtaining cultures. Patient also underwent COVID-19 assay the day prior which came back negative -05/28/2020; patient urine cultures positive for gram-negative rods however colony count was not significant. In any case patient responded to treatment prescription was written dyspnea on discharge 2. Acute kidney injury ?Patient started on IV hydration with subsequent monitoring of electrolyte -05/26/2020; patient seen no significant improvement in kidney function -05/27/2020; patient creatinine down to 1.26. Do suspect some chronicity to patient's impaired kidney function -05/28/2020. Patient kidney function back to within normal limits 3. Diarrhea ?Patient being resuscitated with IV fluids stool sent to rule out C. difficile -05/26/2020; stool for C. difficile since came back negative -Patient has underlying history of irritable bowel syndrome?D, patient did receive 1 dose of Imodium prior to discharge 4. Hypertension - Blood pressure controlled, home medications continued with dose adjustment as needed 5. Diabetes mellitus type II -patient's oral hypoglycemics held. Placed on long acting insulin, Accu-Cheks a.c. and at bedtime and covered with sliding scale insulin -Patient was discharged back on glipizide at reduced dose of 2.5 from 5 mg daily to reduce the risk of hypoglycemia 6. Gout ?patient is on allopurinol did continue 7. Anemia - Secondary to chronic disorder monitoring H&H and transfuse if patient becomes symptomatic or hemoglobin falls below 7 8. History of previous PE/DVT ?Patient is on systemic anticoagulation with Coumadin INR is subtherapeutic -05/26/2020: Adjusted Coumadin dose subsequent monitoring of INR ordered 9. Physical deconditioning - Requested for PT OT eval and group social worker to assist with discharge planning 10. Hypomagnesemia ?Corrected per protocol follow-up magnesium ordered Patient Problems: Active and Suspected Problems UTI (urinary tract infection) (Acute) Generalized weakness (Acute) Objective: GENERAL: cooperative HEENT: Atraumatic; EYES; Anicteric, Normal Conjunctiva NECK; supple, normal thyroid, RESPIRATORY: Diminished to auscultation CARDIOVASCULAR: Regular S1 S2, GI: soft, normoactive bowel sounds, : No Renal angle tenderness; EXTREMITIES: No edema, no clubbing, MUSCULOSKELETAL: no muscle waisting NEURO: Awake; no lateralizing signs. 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 05/25/20 10:32 Blood Culture (Wb) - Anticubital Left Blood Culture - Preliminary No growth in 48 hours. 05/25/20 09:00 Stool C. difficile DNA Amplification - Final Laboratory Results 05/27/20 11:58: POC Glucose 250 H 05/27/20 17:47: POC Glucose 160 H 05/27/20 21:42: POC Glucose 189 H 05/28/20 06:34: POC Glucose 117 H 05/28/20 06:36: WBC 4.3 L, RBC 2.64 L, Hgb 8.2 L, Hct 25.3 L, MCV 95.8, MCH 31.1, MCHC 32.4, RDW Std Deviation 50.0 H, RDW Coeff of Brisa 14.2, Plt Count 118 L, MPV 9.9 05/28/20 06:36: PT 16.0 H, INR 1.3 05/28/20 06:36: Sodium 143, Potassium 3.7, Chloride 117 H, Carbon Dioxide 20.0 L, Anion Gap 6, BUN 18, Creatinine 0.96, Estim Creat Clear Calc 41.36, Est GFR (MDRD) Af Amer 72, Est GFR (MDRD) Non-Af 59 L, BUN/Creatinine Ratio 18.7, Glucose 117 H, Calcium 8.0 L Current Medications Acetaminophen (Acetaminophen 325 Mg Tablet) 650 mg PO Q6H PRN PRN PRN Reason: Pain 1-10 or Fever Last Admin: 05/27/20 18:23 Dose: 650 mg Documented by: Allopurinol (Allopurinol 100 Mg Tablet) 100 mg PO DAILYCM [facility] Last Admin: 05/28/20 08:46 Dose: 100 mg Documented by: Calamine/Phenol (Menthol/Lanolin/Calamine/Znox 113 Gm Tube) 1 applic TOPICAL TID [facility]; Protocol Last Admin: 05/28/20 06:34 Dose: 1 applicatio Documented by: Dextrose (Dextrose 50%-Water 25 Gm/50 Ml Disp.Syrin) 0 gm IV X1 PRN; Protocol PRN Reason: Hypoglycemia Glucagon (Glucagon 1 Mg/Ml Syringe) 1 mg IM .X1 PRN PRN Reason: Hypoglycemia Sodium Chloride () 1,000 mls @ 100 mls/hr IV .Q10H [facility] Last Admin: 05/28/20 08:46 Dose: 100 mls/hr Documented by: Sodium Chloride () 250 mls @ 15 mls/hr IV .[id number] PRN PRN Reason: Saline Flush Sodium Chloride () 250 mls @ 15 mls/hr IV .[id number] PRN PRN Reason: Additional IVPB Infusion Ceftriaxone Sodium (Rocephin) 1 gm in 50 mls @ 100 mls/hr IV Q24@2200 [facility] Last Infusion: 05/27/20 21:42 Dose: Infused Documented by: Insulin Human Lispro (Insulin Lispro 100 Unit/Ml Insuln.Pen) 0 unit SC [facility]; Protocol Last Admin: 05/28/20 06:35 Dose: Not Given Documented by: Loperamide HCl (Loperamide 2 Mg Capsule) 2 mg PO X1 ONE Stop: 05/28/20 10:47 Magnesium Chloride (Magnesium Chloride 64 Mg Delay Rel.Tablet) 128 mg PO BID [facility] Last Admin: 05/28/20 08:47 Dose: 128 mg Documented by: Nutritional Formula (Lactose Free) (Glucerna Shake 120 Ml Liquid) 120 ml PO 4X/DAY [facility] Last Admin: 05/28/20 08:48 Dose: Not Given Documented by: Sodium Chloride (0.9% Saline Lock 10 Ml Syringe) 10 - 40 ml IV UD PRN PRN Reason: SALINE FLUSH Last Admin: 05/25/20 05:16 Dose: 10 ml Documented by: Sulfasalazine (Sulfasalazine 500 Mg Tablet) [facility] Last Admin: 05/28/20 08:46 Dose: 1,000 mg Documented by: Warfarin Sodium (Warfarin 5 Mg Tablet) 5 mg PO DAILY@1700 [facility] Last Admin: 05/27/20 18:23 Dose: 5 mg Documented by: Discharge Diet: No Restrictions Discharge Activity: Return to Normal Activity Home Medications: Medications to take at Discharge Allopurinol [Zyloprim] 100 mg PO DAILY 05/25/20 Dicyclomine HCl [Bentyl] 10 mg PO Q6H PRN PRN 05/25/20 Lisinopril [Zestril] 20 mg PO DAILY 05/25/20 Loperamide [Imodium] 4 mg PO Q4H PRN PRN 05/25/20 Sulfasalazine [Azulfidine] 1,000 mg PO DAILY 05/25/20 Warfarin [Coumadin] 5 mg PO DAILY 05/25/20 Amlodipine [Norvasc] 10 mg PO DAILY #60 tab 05/28/20 Atenolol [Tenormin (beta vida)] 50 mg PO DAILY #0 05/28/20 Cefdinir [Omnicef [equiv]] 300 mg PO Q12H #10 cap 05/28/20 Glipizide [Glipizide ER] 2.5 mg PO DAILY #60 tab.er.24 05/28/20 Magnesium Oxide [Magox 400] 400 mg PO DAILY #30 tab 05/28/20 Following Prescriptions Were Given to Patient: Glipizide [Glipizide ER] 2.5 mg PO DAILY #60 tab.er.24 Transmission Status: Pending to [facility] Magnesium Oxide [Magox 400] 400 mg PO DAILY #30 tab Transmission Status: Pending to [facility]24 Amlodipine [Norvasc] 10 mg PO DAILY #60 tab Transmission Status: Received by [facility]24 Cefdinir [Omnicef [equiv]] 300 mg PO Q12H #10 cap Transmission Status: Received by [facility]24 Primary Care Physician: Paresh Pompa MD [Primary Care Provider] - Please follow up with your Primary Care Physician in: in 2 weeks Disposition: Home Minutes spent on discharge:: 40 Patient Condition:: Stable Medical Necessity - Tobacco Use Smoking Status: Never smoker Meaningful Use Info Meaningful Use Diagnoses (Choose all that apply): None applicable Inpatient E&M: 03202 Disch Hosp
--- NOTE | 2020-05-28 10:53 | DCINST_ITS ---
- Discharge Diagnoses Current Active Problems: Current Active and Chronic Problems UTI (urinary tract infection) (Acute) Generalized weakness (Acute) Discharge Activity: Return to Normal Activity Allergies/Adverse Reactions: Allergies No Known Allergies Allergy (Verified 05/25/20 04:03) Medications to take at Discharge Allopurinol [Zyloprim] 100 mg PO DAILYCM 05/25/20 Dicyclomine HCl [Bentyl] 10 mg PO Q6H PRN PRN 05/25/20 Lisinopril [Zestril] 20 mg PO DAILY 05/25/20 Loperamide [Imodium] 4 mg PO Q4H PRN PRN 05/25/20 Sulfasalazine [Azulfidine] 1,000 mg PO DAILY 05/25/20 Warfarin [Coumadin] 5 mg PO DAILY 05/25/20 Amlodipine [Norvasc] 10 mg PO DAILY #60 tab 05/28/20 Atenolol [Tenormin (beta viad)] 50 mg PO DAILY #0 05/28/20 Cefdinir [Omnicef [equiv]] 300 mg PO Q12H #10 cap 05/28/20 Glipizide [Glipizide ER] 2.5 mg PO DAILY #60 tab.er.24 05/28/20 Magnesium Oxide [Magox 400] 400 mg PO DAILY #30 tab 05/28/20 The following prescriptions were given: Glipizide [Glipizide ER] 2.5 mg PO DAILY #60 tab.er.24 Transmission Status: Pending to [facility] 1724 Magnesium Oxide [Magox 400] 400 mg PO DAILY #30 tab Transmission Status: P[facility] to [facility]24 Amlodipine [Norvasc] 10 mg PO DAILY #60 tab Transmission Status: [facility] by [facility]24 Cefdinir [Omnicef [equiv]] 300 mg PO Q12H #10 cap Transmission Status: Received by [facility] 1724 Primary Care Physician: Paresh Pompa MD [Primary Care Provider] - Please follow up with your Primary Care Physician in: in 2 weeks Test Results: Test results from this visit will be discussed in further detail at your follow- up appointment, if applicable. Proposed Discharge Date: 05/28/20
[2020-05-28] MEDS: Loperamide 2 MG Capsule PO (11:13)
[2020-05-28] MEDS: Insulin Lispro 100 UNIT/ML INSULN.PEN SC (11:14)
[2020-05-28 11:26] LABS: Bedside Glucose 218 mg/dL (70-110)
--- NOTE | 2020-05-28 11:41 | NURSING ---
spoke w/ son jerome bertha:d/c today, he said they will be here AFTER 1
--- NOTE | 2020-05-28 13:34 | CASEMGMT ---
Discharge instructions and summary faxed to [facility] and called updating that patient is discharging home today.
== END 2020-05-28 13:18 | disposition home or self-care (01) | DRG 683 ==
PROVIDERS: Admitting Provider Family Medicine; PCP Family Medicine; Visit Provider Internal Medicine
DX: N17.9 Acute kidney failure, unspecified (principal); N30.00 Acute cystitis without hematuria; I10 Essential (primary) hypertension; E11.9 Type 2 diabetes mellitus without complications; M10.9 Gout, unspecified; D63.8 Anemia in other chronic diseases classified elsewhere; Z86.711 Personal history of pulmonary embolism; Z86.718 Personal history of other venous thrombosis and embolism; R53.81 Other malaise; E83.42 Hypomagnesemia; Z79.01 Long term (current) use of anticoagulants; Z79.84 Long term (current) use of oral hypoglycemic drugs; Z79.899 Other long term (current) drug therapy; K58.0 Irritable bowel syndrome with diarrhea
CPT/HCPCS: 36415; 80048; 81001; 82962; 83735; 85025; 85027; 85610; 87040; 87077; 87086; 87088; 87186; 87493; 87635; 92526; 92610; 97110; 97116; 97162; 97166; 97530; 97535; 97802; 99251; J7030; A4216; G0463; U0002

== ENCOUNTER → 2020-11-09 14:57 | Outpatient (CLI) | payer MEDICARE, OTHER, SELFPAY ==
[2020-05-25 03:46] VITALS: BMI 26.9
--- NOTE | 2020-11-09 14:30 | PET_ITS ---
EXAMINATION: FDG PET-CT INDICATIONS: An 80-year-old female with history of head and neck carcinoma presenting for apparent initial staging examination. COMPARISON EXAMINATION: None available INDEX LESION SIZE SUV INTERPRETATION Pharyngeal mucosal space-tonsillar pillar 35.4 x 16.8-mm (frame 236) 19.0 Fulfills quantitative criteria for viable neoplasm Left pharyngeal mucosal space, left lateral neck 28.5 x 30.9-mm (largest) (frame 229) 8.5 (max) Fulfills quantitative criteria for viable neoplasm TECHNIQUE: Following the intravenous administration of F-18 deoxyglucose, multiplanar image acquisitions of the neck, chest, abdomen and pelvis to level of mid thigh, obtained at one hour post radiopharmaceutical administration contemporaneously interpreted with the current CT of the neck, chest, abdomen and pelvis, to level of mid thigh, dated 11/09/20 via coregistration reveals: FINDINGS: 1. Increased glucose metabolism is defined in the left pharyngeal mucosal space in the region of the tonsillar pillar. The calculated maximal standard uptake value is 19.0. The maximal axial diameter of the corresponding metabolic, morphologic abnormality on review of CT of the neck dated 11/09/20 is 35.4-mm (transverse) x 16.8-mm (AP). 2. Enhanced tracer concentration is observed in the left parapharyngeal space and left lateral neck to include level IIA-B, level III in separate nodular foci. The calculated maximal standard uptake value is 8.5. The maximal axial diameter of the largest individual metabolic, morphologic abnormality on review of CT of the neck dated 11/09/20 is 28.5-mm (transverse) x 30.9-mm (AP). 3. Normal physiologic distribution of the radiopharmaceutical is apparent in the hepatic (3.8) and splenic parenchyma, both renal units, bladder and visualized intestinal tract. The visualized portion of the cerebral cortical-subcortical structures demonstrate symmetric and preserved glucose metabolism. Diffuse radiopharmaceutical concentration is noted in all four quadrants of the abdomen and pelvis. Prominent radiopharmaceutical concentration is defined in the anterior neck, laryngeal structures which appears associated with the cricopharyngeus musculature, arytenoid cartilage without evidence of soft tissue thickening most consistent with physiologic radiopharmaceutical uptake. Pertinent CT findings are as follows: CHEST: There is atherosclerotic calcification defined in the thoracic aorta without evidence of dilatation-aneurysm formation. Subtle coronary arterial calcification is observed. Right and left axillary soft tissue densities with fatty hilus are non-glucose avid. Calcified densities defined in the right upper lung field reveal no evidence of increased tracer uptake. ABDOMEN AND PELVIS: The gallbladder appears surgically absent. There is atherosclerotic calcification defined in the abdominal aorta without evidence of dilatation-aneurysm formation. Pelvic arterial calcification is defined. Right and left subcentimeter inguinal soft tissue densities are non-glucose avid. Calcified granuloma formation is noted within the splenic parenchyma. SKELETAL: Degenerative changes are noted in the cervical, thoracic and lumbar spine without evidence of increased radiopharmaceutical concentration. PET/PET/CT Tumor Base -Thigh Init IMPRESSION: 1. 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 2. Increased glucose concentration demonstrated in the left pharyngeal mucosal space, tonsillar pillar fulfills quantitative criteria for malignant transformation. 3. Enhanced tracer uptake defined in the left parapharyngeal space, the left lateral neck to include levels IIA-B, III fulfill quantitative criteria for viable metastatic disease. 4. No other quantitatively significant hypermetabolic abnormalities are noted. There is no definitive scintigraphic evidence of distant metastatic disease. Electronic Signature Gurpreet Bashir D.O. Accurate Quantification of SUVs for this report are calculated using the exclusive [employer]. (U.S. Patent No. 10, [id number] 983). Standardization and correction of the FDG SUV metric via [employer] technology allow for vendor non-specific objective quantitative examination comparison and optimization of the sensitivity and specificity of the FDG PET-CT examination. Electronically Signed: Gurpreet Bashir DO at 7:51 EDT Tel , Service support ,
== END ==
PROVIDERS: PCP Family Medicine
DX: C09.9 Malignant neoplasm of tonsil, unspecified (principal)
CPT/HCPCS: 78815; A9552

== ENCOUNTER 2020-12-24 05:51 | Day surgery (SDC) | payer MEDICARE, OTHER, SELFPAY ==
[2020-12-24 06:42] VITALS: BP 147/50; PULSE 70; RESP 16; TEMP 36.9; O2SAT 94; BMI 25.2
[2020-12-24] MEDS: Lactated Ringers 1,000 ML 100 ML IV (06:50)
--- NOTE | 2020-12-24 07:06 | PCM.HP.BLA ---
History and Physical Date of Admission: 12/24/20 Date of Service: 12/09/20 MR#:[id number]:[id number]: ARMINDA CHAVIRA #:[id number]:1940 Provider:Adalid Queen/Sex: 80/F [facility] Vital Signs 12/09/20 14:04 Height 5 ft 5 in Weight: 154 lb BMI 25.6 BP 137/60 H Blood Pressure Location Lt brachial Position Sitting Respiration 18 Intake Visit Reasons: PEG TUBE, POSSIBLE PORT Chief Complaint: discuss peg/port Commercial Or Institutional Cleaner Required: No Is patient in pain?: No Allergies No Known Allergies Allergy (Verified 12/09/20 14:04) Medications allopurinol 100 mg PO DAILYCM 05/25/20 [History Confirmed 12/09/20] dicyclomine 10 mg PO Q6H PRN PRN 05/25/20 [History Confirmed 12/09/20] lisinopril 20 mg PO DAILY 05/25/20 [History Confirmed 12/09/20] loperamide 4 mg PO Q4H PRN PRN 05/25/20 [History Confirmed 12/09/20] sulfasalazine 1,000 mg PO DAILY 05/25/20 [History Confirmed 12/09/20] warfarin 5 mg PO DAILY 05/25/20 [History Confirmed 12/09/20] amlodipine 10 mg PO DAILY #60 tab 05/28/20 [Rx Confirmed 12/09/20] atenolol 50 mg PO DAILY #0 05/28/20 [Rx Confirmed 12/09/20] cefdinir 300 mg PO Q12H #10 cap 05/28/20 [Rx Confirmed 12/09/20] glipizide 2.5 mg PO DAILY #60 tab.er.24 05/28/20 [Rx Confirmed 12/09/20] magnesium oxide 400 mg PO DAILY #30 tab 05/28/20 [Rx Confirmed 12/09/20] cholestyramine (with sugar) 4 gram powder for susp in a packet PO 11/29/20 [History Confirmed 12/09/20] hydrochlorothiazide 25 mg tablet 25 mg PO DAILY 12/07/20 [History Confirmed 12/09/20] PFS Medical History Cerebrovascular disease Cervical lymphadenopathy Depression Diabetes DVT (deep venous thrombosis) Gastroesophageal reflux Hypertension Tonsillar mass Surgical History History of hysterectomy History of total colectomy Family History Sister Cancer Social History adopted: No household members: spouse housing: house number of children: 2 current occupational status: retired current occupational exposures/hazards: No Smoking Status: Never smoker second hand exposure: No alcohol intake: never substance use type: does not use HPI HPI HPI: ARMINDA CHAVIRA, is a 80 F who presents to the office today for port possible PEG. Patient scheduled to have surgery for left tonsil squamous cell carcinoma within the month. Patient needs a port eventually for treatment but also for IV access as she has poor IV access on her extremities. Patient will also likely need a PEG prior to treatment but that will not be required about 8 weeks. ROS General General: Yes weight change; No appetite, fatigue, colon cancer, breast cancer or weakness HEENT HEENT: Yes difficulty swallowing, eye injury, eye surgery and swollen glands; No hoarseness Endo Endocrine: Yes diabetes mellitus; No thyroid disease, thyroid cancer, Hair loss, heat intolerance or cold intolerance Skin Skin: No rash or changing moles Breast Breast: No left breast lump, right breast lump, nipple discharge, breast pain, abnormal mammogram, abnormal US or breast enlargement Musc Musculoskeletal: Yes back problems, arthritis and gout; No rheumatoid arthritis or joint pain Cardio Cardiovascular: Yes high blood pressure; No murmur, pacemaker, heart disease, atrial fibrillation, heart attack, heart stent, palpitations, shortness of breat with exertion or chest pain Psych Psychiatric: No depression, anxiety or hearing voices Resp Respiratory: Yes shortness of breath, No sleep apnea, No cough, No COPD, No asthma, No emphysema and No wheezing Gastro Gastrointestinal: No abdominal pain, No nausea or vomiting, Yes diarrhea, No constipation, No blood in stool, Yes acid reflux, No hemorrhoids, No ulcers, Yes gallbladder problem and No black,tarry stools Anant Hematologic: Yes blood thinners, No blood disorders, No bleeding, Yes anemia and Yes blood clots Neuro Neurologic: No system reviewed and no additional complaints, except as documented, No as per HPI, No abnormal gait, No abnormal hearing, No abnormal movements, No abnormal speech, No behavioral changes, No burning sensations, No confusion, No convulsions, No disequilibrium, No dizziness, No localized weakness, No frequent falls, No headache(s), No lack of coordination, No loss of vision, No memory loss, No numbness, No other visual disturbances, No radicular pain, No restless legs, No sensory deficit, No syncope, No tingling, No tremor(s), No weakness and No other Exam Const General: cooperative, healthy appearing, comfortable and no acute distress Neck Other: Large left neck mass seen below mandible about 6 cm in size, right neck palpation normal Chest Other: Patient does have a small scab in the right upper chest couple millimeters in size. We will plan to have them place Neosporin to this area. Otherwise normal palpation of the bilateral upper chest Resp Effort & Inspection: normal respiratory effort Cardio Rate: regular rate GI Inspection: non-distended Palpation: soft, no guarding and nontender Skin General: no rashes or lesions noted Neuro General: patient oriented x3 Psych Affect: normal affect COVID (Procedure Consent) Procedure Criteria Procedure Criteria: Yes Elective The surgeon/proceduralist and patient have discussed in detail the risk of exposure to and/or potential harm posed by the COVID-19 virus with having a surgery/procedure at this time versus the risk of delaying the surgery/procedure. It is not possible to know either the risk of delaying the surgery or procedure or chance of getting an infection with perfect accuracy, but a joint decision was made between the patient and the surgeon/proceduralist to proceed at this time with the scheduled surgery/procedure as indicated on the consent form. Assessment and Plan Assessment and Plan (1) Encounter for insertion of venous access port: Status: Acute (2) Squamous cell carcinoma of left tonsil: Status: Acute (3) Encounter for PEG (percutaneous endoscopic gastrostomy): Status: Acute Plan - Dr. Jeny Kirby MD: We will check with PCP to see if patient can come off her Coumadin for 5 days prior to port or if patient needs to be bridged to Lovenox. We will also have them keep an eye on the small scab in the right upper chest see if that improves prior to port placement Patient will not need the PEG tube for prior about 8 weeks as surgery could be within the next month and then treatment would be at least 4 weeks after that. Discussed with patient and her [id number] that I would recommend coming back to have the PEG tube placed that she will not need it for quite a while instead of having to deal with it at home. Patient was not sure she wanted the PEG at all. Plan to have patient come back prior to treatment to discuss PEG placement again. I have discussed above with the patient- Port-a-Cath placement. Right IJ Patient has been counseled as to the risks/benefits of the procedure. I have explained the risks of the surgery, including but not limited to: infection, bleeding, injury to any blood vessels/nerves, injury to lungs (such as pneumothorax or hemothorax and need for chest tube), not having any access, nonfunctioning of port due to thrombosis, infection of port, etc. the patient understands and agrees to proceed. I have answered all the patient's questions to the patient?s satisfaction and the patient has no further questions. Jeny Kirby M.D. Pager: [phone] [facility] [address] [place] [address], [address] [place] [address] Office: [phone] Coding Level of Care Code Off vis,new,level 3 Diagnoses Encounter for insertion of venous access port Z45.2 Squamous cell carcinoma of left tonsil C09.9 Encounter for PEG (percutaneous endoscopic gastrostomy) Z43.1 12/09/20 1446<Electronically signed by Jeny Kirby MD>Date Jeny Kirby MD
[2020-12-24 07:30] LABS: INR Fingerstick 1.3; Prothrombin Time Fingerstick 15.2 SEC (11.9-14.4)
[2020-12-24] MEDS: Cefazolin 2 GM in 0.9% Normal Saline 100 ML IV (07:30)
--- NOTE | 2020-12-24 07:30 | LES_PTH ---
PATIENT: ARMINDA CHAVIRA [place] [facility] [place][id number] AGE/SX: 80/F ROOM: RE12/24/[address]: Dr. Jeny Kirby MD : 1940 BED: DIS: 12/24/2020 SPEC #: [id number] RECD: 12/24/20 10:00 STATUS: XENIA RESpeedy #: [id number] ANDREA: 12/24/20 07:[address]: Jeny Kirby DEPT: SURGICAL PATHOLOGY RECD BY: Alisha Mishra ENTERED: 12/24/20 10:35 SP TYPE: Lesion OTHR DR: Dr. Elijah Granados MD Tissues: Skin of chest Procedures: Surgery Specimen Level IV HEADER OPERATION: Insertion internal jugular port, excision of chest lesion PRE-OP DIAGNOSIS: Encounter for insertion of venous access port; squamous cell carcinoma of left tonsil; right chest lesion TISSUE SUBMITTED: Right chest lesion, long suture - lateral, short suture - superior MICROSCOPIC DIAGNOSIS Lesion of right chest, biopsy: Basal cell carcinoma. See comment. AM:kimberly 12/27/2020 COMMENT The lesion extends to the lateral tip margin. Clinical correlation is suggested. Case has been reviewed in consultation with Dr. Martínez who concurs with the above diagnosis. IDC:BETZAIDA MICROSCOPIC DESCRIPTION Slides are reviewed. GROSS DESCRIPTION Received in fixative is one container labeled with the patient's name and designated right chest lesion. The specimen consists of a sharif-white skin ellipse measuring 1 x 0.5 cm and up to 0.1 cm in thickness. The specimen is oriented as follows: long suture - lateral, short suture - superior. The specimen is inked as follows: lateral tip - yellow, medial tip - green, superior margin - black, inferior margin - blue. The entire specimen is submitted in one cassette. It will be sectioned at the time of embedding. / BETZAIDA:kimberly 12/24/20 TC:0 CPT: 17394
[2020-12-24 07:47] LABS: International Normalized Ratio 1.2; Prothrombin Time (Protime)PT. 14.2 SECONDS (11.7-14.9)
[2020-12-24 08:00] LABS: Bedside Glucose 156 mg/dL (70-110)
[2020-12-24] MEDS: Lidocaine 1% /Epi 1:100 (20ml) 20 ML Vial (08:15)
[2020-12-24] MEDS: Bupivacaine Mpf 0.5% 30 ML VIAL (08:16)
--- NOTE | 2020-12-24 08:26 | OP.PCM_ITS ---
Report of Operation Date of Procedure: 12/24/20 Pre-Operative Diagnosis: z45.2, squamous cell carcinoma of left tonsil Post-Operative Diagnosis: Same Surgery/Procedure Performed:: 1. Excision of right upper chest skin lesion 2. Placement of a right IJ Port-A-Cath Use of ultrasound Use of fluoroscopy Surgeon: Jeny Kirby Type of Anesthesia: Local Special Medications: Ancef 2 g IV x1 Specimen's removed: 1. Right upper chest skin lesion Estimated Blood Loss (mL): < 10 cc Description of Procedure: After informed consent was given, the patient was brought to the operating room and placed in the supine position. Appropriate time out protocol was followed. Patient only had local anesthesia due to eating toast at 330 this morning. Patient's right upper chest/neck were prepped and draped in usual sterile fashion with the chlorhexidine. The skin lesion was excised after local anesthesia was infiltrated to that area. Skin lesion was marked long stitch lateral short stitch superior. An incision was closed with 4-0 Monocryl. The patient's bilateral upper chest and neck were then reprepped with a surgical skin preparation and sterile surgical drapes were placed. After proper landmarks were ascertained, the skin at the upper right chest area was then infiltrated with 1:1 mixture of 1% lidocaine with epinephrine and 0.5% marcaine. A needle trocar was then inserted into the right internal jugular vein with ultrasound guidance-multiple vessels were viewed with u/s and the right IJ was chosen-- and there was good aspiration of venous blood. A wire was then threaded into the needle trocar and this was visualized under fluoroscopy to ensure that the wire was in the superior vena cava. Once this was done, then the needle trocar was removed. A small skin doreen was made with an 11 blade knife at the wire entrance site. The dilator with the introducer sheath attached was then placed over the wire into the right internal jugular vein via the Seldinger technique and this was visualized under fluoroscopy. The dilator and sheath were in proper position as visualized by fluoroscopy. A subcutaneous pocket was then created caudad to the catheter insertion site. A transverse skin incision was made after the skin and subcutaneous tissues were infiltrated with local anesthetic. Blunt dissection was then used to create a space large enough for placement of the subcutaneous port. The catheter was then tunneled into the subcutaneous pocket. The wire and dilator were then removed. The catheter was then threaded into the introducer sheath and was positioned with its tip at the junction of the superior vena cava and the right atrium as visualized under fluoroscopy. The excess catheter was transected. The catheter was then attached to the subcutaneous port using manufacturers guidelines. The catheter was flushed with a heparin saline mixture prior to placement. Hemostasis was carefully controlled with electrocautery. The port was sutured to the subcutaneous fascia using 2-0 Vicryl suture at two sites. The port was then placed in the subcutaneous po cket. The incision were reapproximated with interrupted subdermal 3-0 vicryl sutures. The skin was reapproximated with 3-0 nylon suture in a interrupted fashion. Steristrips were used for reinforcement of the skin closure at IJ insertion site and a sterile opsite dressings were applied. The patient tolerated the procedure well. Implants Used: [employer] PowerPort isp M.R.I. 6Fr Lot [id number] [id number] Grafts/Implants Used: [employer] PowerPort isp M.R.I. 6Fr Lot [id number] REF [id number] Complications none
--- NOTE | 2020-12-24 08:32 | EX.PCM.DISCH ---
Discharge Instructions Procedure Port-A-Cath Diet Discharge Diet: Light diet - advance as tolerated Activity May shower in (days): 5 (Keep port site clean and dry x5 days. Neck incision okay to get wet after 1 day. Okay to lower shower and upper sponge bath. OR okay to taper off port site with a Ziploc bag to shower) Lifting Restrictions: No lifting > 15 pounds for 3 days with the arm on the side of the port Dressing / Incision Call your doctor if your incision/area has: Continuous Slow Oozing, Sudden Increased Bleeding, Increased Pain/ Swelling, Increased Redness, Foul Smelling Discharge and Swelling at the incision site Call your doctor if you observe: Fever of 101 or Higher Change Dressing in: 2 days Follow Up Care Please Follow Up With: Jeny Kirby MD When: In 10 days for permanent suture removal?call office for appointment Test Results: Test results from this visit will be discussed in further detail at your follow-up appointment, if applicable. Discharge Plan Admission Attending Provider: Jeny Kirby Primary Care Provider: Elijah Granados Discharge Orders/Prescriptions Prescriptions: New tramadol 50 mg tablet 50 mg PO Q6H PRN (Reason: pain) 3 Days Qty: 5 RF: 0 Continued hydrochlorothiazide 25 mg tablet 25 mg PO DAILY RF: 0 sulfasalazine 500 MG tablet 1,000 mg PO DAILY RF: 0 loperamide 2 MG capsule 4 mg PO Q4H PRN PRN (Reason: Diarrhea) RF: 0 lisinopril 20 MG tablet 20 mg PO DAILY RF: 0 allopurinol 100 MG tablet 100 mg PO DAILYCM RF: 0 dicyclomine 10 MG capsule 10 mg PO Q6H PRN PRN (Reason: abdominal pain) RF: 0 glipizide 2.5 MG tablet extended release 24hr 2.5 mg PO DAILY Qty: 60 RF: 0 atenolol 50 MG tablet 50 mg PO DAILY Qty: 0 RF: 0 cholestyramine (with sugar) 4 gram Powder In Packet 4 g PO DAILY RF: 0 lutein 20 mg Capsule 20 mg PO DAILY RF: 0 Held warfarin 5 MG tablet 5 mg PO DAILY RF: 0 Hold Instructions: due to schedule surgery on then per that surgeon enoxaparin [Lovenox] 80 mg/0.8 mL Syringe 80 mg SUBCUT DAILY RF: 0 Hold Instructions: until tonight Other Ambulatory Orders: Prothrombin Time w/INR (Routine) Timeframe: 20201224 Facility: [facility] - Location: Laboratory Ordered By: Dr. Pradeep Rodriguez Referrals / Follow Up: Elijah Granados MD [Primary Care Provider] - Disposition Disposition (needs filled in before D/C Order can be placed): Home, Self Care
--- NOTE | 2020-12-24 08:35 | RAD_ITS ---
STUDY: X-RAY CHEST REASON FOR EXAM: Female, 80 years old. Port -- AC 6--stat TECHNIQUE: Single AP portable view of the chest. COMPARISON: None. FINDINGS: A right-sided portacatheter has been placed. The tip is at the junction of the superior vena cava and right atrium. Hyperinflation. Pleural calcification at the lung apices. Normal size heart. Normal mediastinum and ivory. Normal visualized pulmonary arteries. There is atherosclerotic calcification of the aortic arch with tortuosity. There are diffuse degenerative changes of the visualized thoracic spine. Normal visualized ribs, clavicles, and shoulders. There is no demonstrated abnormality of the visualized soft tissue structures of the upper abdomen. RAD/CXR for Line Placement IMPRESSION: A right-sided Port-A-Cath has been placed with the tip at the junction of the superior vena cava and right atrium. Pleural calcification at both lung apices. Electronically Signed: Serafin Hightower MD at 8:54 EDT , Service support ,
[2020-12-24 08:50] VITALS: BP 157/58; PULSE 74; RESP 16; TEMP 36.8; O2SAT 99
== END 2020-12-24 09:36 | disposition home or self-care (01) ==
LOC: SDC 05:55 → AC 05:55
PROVIDERS: Anesthesiology; PCP Family Medicine; Referring Provider Surgery; Visit Provider Surgery
PROC: (CPT 11606; principal; 2020-12-24 07:15)
DX: C44.519 Basal cell carcinoma of skin of other part of trunk (principal); C09.9 Malignant neoplasm of tonsil, unspecified; Z45.2 Encounter for adjustment and management of vascular access device; F32.9 Major depressive disorder, single episode, unspecified; E11.9 Type 2 diabetes mellitus without complications; K21.9 Gastro-esophageal reflux disease without esophagitis; I10 Essential (primary) hypertension; Z86.718 Personal history of other venous thrombosis and embolism; Z86.73 Personal history of transient ischemic attack (TIA), and cerebral infarction without residual deficits; Z79.01 Long term (current) use of anticoagulants; Z79.899 Other long term (current) drug therapy
CPT/HCPCS: 11606; 36561; 36416; 71045; 77001; 82962; 85610; 87426; 88305; J7120

== ENCOUNTER → 2021-01-28 12:41 | Outpatient (CLI) | payer MEDICARE, OTHER, SELFPAY ==
--- NOTE | 2021-01-28 14:15 | ST.MBS ---
Modified Barium Swallow - Patient Information Study Date: 01/28/21 Study Time: 13:10 Direct Billable Minutes: 110 Total Minutes procedure & reportin Diagnosis: malignant neoplasm of tonsil Referring Physician: Sita Sánchez Reason for Referral: Pt. was referred for an objective videofluoroscopy study of the swallow to rule out aspiration and to determine if a po diet is appropriate at this time Medical History: Pt. has a medical history of a malignant neoplasm on the tonsil that was surgically removed approximately 1 month ago per son. Pt. is currently receiving nutrition through an NG tube Current Diet Ordered: NPO Dentition: Edentulous, Upper Dentures - not present at MBSs, Lower Dentures - No present at MBSs Mental Status: WNL Respiratory Status: Oxygenating on Room Air - Penetration-Aspiration Scale Penetration-Aspiration Scale: OBJECTIVE ASSESSMENT OF SWALLOW FUNCTION (QUANTITATIVE ? PER TRIAL): PENETRATION / ASPIRATION SCALE (CHERRY): 1 = does not enter airway 2 = enters airway/above vocal folds/ejected 3 = enters airway/above vocal folds/not ejected 4 = enters airway/contacts vocal folds/ejected 5 = enters airway/contacts vocal folds/not ejected 6 = enters airway/below vocal folds/ejected 7 = enters airway/below vocal folds/not ejected despite effort 8 = enters airway/below vocal folds/no effort - Penetration-Aspiration Scale Score Thin Liquid via teaspoon Result: 1= does not enter airway Thin Liquid via teaspoon Trial 2 Result: 3= enters airways/above vocal folds/not ejected Thin Liquid via small single sip from cup Result: 5= enters airways/contacts vocal folds/not ejected [place] Thick Liquid via teaspoon Result: 1= does not enter airway [place] Thick Liquid via small single sip from cup Result: 2= enter airway/above vocal folds/ejected Honey Thick Liquid via small single sip from cup Result: 1= does not enter airway - pt. attempted cup sip, was not able to get bolus out of cup Pudding via teaspoon Result: 2= enter airway/above vocal folds/ejected Honey Thick Liquid via teaspoon Result: 2= enter airway/above vocal folds/ejected Cookie via teaspoon Result: 1= does not enter airway - 05/07 Loorna Doone Pudding via teaspoon Trial 2 Result: 1= does not enter airway - enter airway/above vocal folds/ejected on 2nd swallow [place] Thick Liquid via teaspoon Trial 2 Result: 2= enter airway/above vocal folds/ejected - Oral Phase Labial Seal: No Labial Escape Tongue Control During Bolus Hold: Cohesive bolus between tongue to palatal seal Bolus Preparation/Mastication: Disorganized chewing/mashing with solid pieces of bolus unchewed - Son reported after study, dent[facility] Transport/Lingual Motion: Repetitive/disorganized tongue motion Oral Residue: Residue collection on oral structures - Pharyngeal Phase Initiation of Pharyngeal Swallow: Bolus head in valleculae Soft Palate Elevation: No bolus between soft palate and pharyngeal wall - no contract escape to nasopharynx, NG tube blocked full closure Laryngeal Elevation: Partial superior movement thyroid cart/partial apprx aryt-epig petiole Anterior Hyoid Excursion: Partial anterior movement Epiglottic Movement: No inversion - NG tube blocked inversion Laryngeal Vestibule Closure at Height of Swallow: Incomplete; narrow column of air/contrast in laryngeal vestibule Pharyngeal Stripping Wave: Present - diminished Pharyngoesophageal Segment Opening: Complete distension and complete duration; no obstruction of flow Tongue Base Retraction: Narrow column of contrast between tongue base & post. pharyngeal wall Pharyngeal Residue: Collection of residue within or on pharyngeal structures - Esophageal Phase Esophageal Clearance: Esophageal retention - esophageal retention cleared with delay - Treatment Strategies Effects of treatment strategies attemped:: Pt. cued to trial hard swallow to clear pharyngeal residue with minimal improvement - Diagnosis/Impression Diagnosis: severe oropharngeal dysphagia (R13.12) Impression: Pt. came to the [facility] with son. Pt. is currently receiving nutrition through an NG tube. Pt. presents with oral phase dysphagia marked by decreased mastication of bolus and decreased anterior posterior transit resulting in oral residue and poor bolus formation. Pt. presents with pharyngeal phases dysphagia marked by decreased tongue base retraction, decreased laryngeal elevation, decreased anterior hyoid excursion, decreased epiglottic deflection, and decreased pharyngeal stripping wave resulting in pooling in the vallecula prior to the initiation of the swallow, decreased airway closure resulting in penetration, and pharyngeal residues. Penetration of pharyngeal residues were observed on re-swallows with pudding and cookie trials. Pt. presented with coughing and throat clear with some, by not all, penetration episodes. During the study pt. presented with gagging, coughing and spitting up phlegm. No aspiration/penetration was seen on the study immediately prior to this episode. Son was present during the study and states she coughs and spits up phlegm consistently throughout the day even when no po intake. - Recommendations Diet: NPO Comment: Pt. to remain NPO with supervised tsp trials of nectar and honey consistencies. Discontinue trials with increase in phlegm production/coughing Compensatory Strategies: Small Bites, Liquid by Teaspoon Only, Slow Rate, Sitting upright, Remain sitting upright for 30 minutes after PO intake, Assist with verbal cues to use recommended strategies Supervision: Fed by trained family Recommend Repeat Modified Barium Swallow: Yes - repeat MBS after skilled ST has implemented strengthening exercises and NG tube removal Need for Skilled Speech Therapy Services: Yes - recommend outpatient ST services Education Completed: 1. Described result of evaluation., 2. Pt understands evaluation & agrees with goals and treatment plan. - Status Active ST Patient: Not Active - Contact Information [facility] Speech Therapy:: [address] [place] [place], [place] [id number] Thelma Cuba M.A., CCC-MAINTENANCE CONSTRUCTION HELPER [email or web address]
== END ==
PROVIDERS: PCP Family Medicine
DX: C09.9 Malignant neoplasm of tonsil, unspecified (principal); R13.10 Dysphagia, unspecified
CPT/HCPCS: 74230; 92611; 96523

== ENCOUNTER 2021-02-09 08:40 | Day surgery (SDC) | payer MEDICARE, OTHER, SELFPAY ==
[2021-02-09] VITALS (7 sets, daily range): BP systolic 154–210; BP diastolic 55–101; PULSE 65–86; RESP 16–18; TEMP 36.1–36.4; O2SAT 96–100; BMI 53.1
[2021-02-09] MEDS: Lactated Ringers 1,000 ML 100 ML IV (09:58)
--- NOTE | 2021-02-09 10:04 | PCM.HP.BLA ---
History and Physical Date of Admission: 02/09/21 Date of Service: 02/08/21 Intake Vital Signs 02/08/21 08:41 Height 5 ft 6 in Weight: 144 lb BMI 23.2 BP 107/65 Blood Pressure Location Rt brachial Position Sitting Respiration 18 Intake Visit Reasons: Peg tube placement Chief Complaint: peg tube removal Philosophy Professor Required: No Is patient in pain?: No Allergies No Known Allergies Allergy (Verified 02/08/21 09:46) Medications allopurinol 100 mg PO DAILYCM 05/25/20 [History Confirmed 02/08/21] dicyclomine 10 mg PO Q6H PRN PRN 05/25/20 [History Confirmed 02/08/21] lisinopril 20 mg PO DAILY 05/25/20 [History Confirmed 02/08/21] loperamide 4 mg PO Q4H PRN PRN 05/25/20 [History Confirmed 02/08/21] sulfasalazine 1,000 mg PO DAILY 05/25/20 [History Confirmed 02/08/21] atenolol 50 mg PO DAILY #0 05/28/20 [Rx Confirmed 02/08/21] glipizide 2.5 mg PO DAILY #60 tab.er.24 05/28/20 [Rx Confirmed 02/08/21] hydrochlorothiazide 25 mg tablet 25 mg PO DAILY 12/07/20 [History Confirmed 02/08/21] cholestyramine (with sugar) 4 g PO DAILY 12/22/20 [History Confirmed 02/08/21] lutein 20 mg PO DAILY 12/22/20 [History Confirmed 02/08/21] tramadol 50 mg PO Q6H PRN 3 Days #5 tab 12/24/20 [Rx Confirmed 02/08/21] PFSH Medical History Abrasion Anemia Back pain Cancer Cerebrovascular disease Cervical lymphadenopathy Depression Diabetes Difficulty swallowing DVT (deep venous thrombosis) Eyelid retraction of left eye Gastroesophageal reflux History of IBS Hypertension Non-smoker Shortness of breath on exertion Tonsillar mass Walker as ambulation aid Wears dentures Wears glasses Surgical History History of hysterectomy History of total colectomy Hx of bilateral cataract extraction Hx of colonoscopy Family History Sister Cancer Social History adopted: No household members: spouse housing: house number of children: 2 current occupational status: retired current occupational exposures/hazards: No Smoking Status: Never smoker second hand exposure: No alcohol intake: never substance use type: does not use HPI HPI HPI: ARMINDA CHAVIRA, is a 80 F who presents to the office today for PEG placement. Patient has had dysphagia since her left neck surgery and has had had a Dobbhoff tube in since then. Patient and her family are interested in having PEG placed. ROS General General: Yes weight change; No appetite, fatigue, colon cancer, breast cancer or weakness HEENT HEENT: Yes difficulty swallowing, eye injury, eye surgery and swollen glands; No hoarseness Endo Endocrine: Yes diabetes mellitus; No thyroid disease, thyroid cancer, Hair loss, heat intolerance or cold intolerance Skin Skin: No rash or changing moles Breast Breast: No left breast lump, right breast lump, nipple discharge, breast pain, abnormal mammogram, abnormal US or breast enlargement Musc Musculoskeletal: Yes back problems, arthritis and gout; No rheumatoid arthritis or joint pain Cardio Cardiovascular: Yes high blood pressure; No murmur, pacemaker, heart disease, atrial fibrillation, heart attack, heart stent, palpitations, shortness of breat with exertion or chest pain Psych Psychiatric: No depression, anxiety or hearing voices Resp Respiratory: Yes shortness of breath, No sleep apnea, No cough, No COPD, No asthma, No emphysema and No wheezing Gastro Gastrointestinal: No abdominal pain, No nausea or vomiting, Yes diarrhea, No constipation, No blood in stool, Yes acid reflux, No hemorrhoids, No ulcers, Yes gallbladder problem and No black,tarry stools Anant Hematologic: Yes blood thinners, No blood disorders, No bleeding, Yes anemia and Yes blood clots Neuro Neurologic: No system reviewed and no additional complaints, except as documented, No as per HPI, No abnormal gait, No abnormal hearing, No abnormal movements, No abnormal speech, No behavioral changes, No burning sensations, No confusion, No convulsions, No disequilibrium, No dizziness, No localized weakness, No frequent falls, No headache(s), No lack of coordination, No loss of vision, No memory loss, No numbness, No other visual disturbances, No radicular pain, No restless legs, No sensory deficit, No syncope, No tingling, No tremor(s), No weakness and No other Exam Const General: cooperative, comfortable and no acute distress [facility] Other: Dobbhoff tube in place Neck Neck: normal visual inspection Chest Other: Right IJ Port-A-Cath in place incision well-healed. Previous area of basal cell excision still appears grossly normal if no the excision did extend to the lateral border per pathology Resp Effort & Inspection: normal respiratory effort Cardio Rate: regular rate GI Inspection: non-distended Palpation: soft, no guarding and nontender Skin General: no rashes or lesions noted Neuro General: patient oriented x3 Psych Affect: normal affect COVID (Procedure Consent) Procedure Criteria Procedure Criteria: Yes Elective The surgeon/proceduralist and patient have discussed in detail the risk of exposure to and/or potential harm posed by the COVID-19 virus with having a surgery/procedure at this time versus the risk of delaying the surgery/procedure. It is not possible to know either the risk of delaying the surgery or procedure or chance of getting an infection with perfect accuracy, but a joint decision was made between the patient and the surgeon/proceduralist to proceed at this time with the scheduled surgery/procedure as indicated on the consent form. Assessment and Plan Assessment and Plan (1) Encounter for PEG (percutaneous endoscopic gastrostomy): Status: Acute (2) Basal cell carcinoma of clavicular area: Status: Acute (3) Dysphasia: Plan - Dr. Jeny Kirby MD: Continue to monitor the area that previously had the basal cell excised as it did extend to the lateral margin which is right near the Port-A-Cath catheter. Currently this area appears grossly normal. I have discussed the above with the patient. I have offered the patient EGD with PEG placement. I have explained the risks/benefits of the procedure and described the procedure. I have discussed the risks with the patient, including but not limited to: infection, bleeding, perforation of the GI tract requiring emergency surgery, inability to complete the procedure, injury to any internal organs, complications of anesthesia, etc. - the patient understands and agrees to proceed. I have answered all the patient's questions to the patient's satisfaction and the patient has no further questions. Jeny Kirby M.D. Pager: [phone] [facility] [address] [place] [address], [address] [place] [address] Office: [phone] Plan Details Follow Up: We will schedule PEG placement Coding Level of Care Code Off vis,est,level 3 Diagnoses Encounter for PEG (percutaneous endoscopic gastrostomy) Z43.1 Basal cell carcinoma of clavicular area C44.519 Dysphasia R47.02 02/08/21 1005<Electronically signed by Jeny Kirby MD>Date Jeny Kirby MD
[2021-02-09 10:11] LABS: Bedside Glucose 112 mg/dL (70-110)
--- NOTE | 2021-02-09 11:18 | OP.EGD_ITS ---
Patient Name: Akosua Ngo Procedure Date: 02/09/2021 10:45 AM Date of : 1940 Age: 80 Procedure: Upper GI endoscopy Indications: Dysphagia Providers: Jeny Kirby MD Referring MD: Jeny Kirby MD Medicines: Monitored Anesthesia Care Patient Profile: This is an 80 year old female. Complications: No immediate complications. Procedure: Pre-Anesthesia Assessment: - Prior to the procedure, a History and Physical was performed, and patient medications and allergies were reviewed. The patient's tolerance of previous anesthesia was also reviewed. The risks and benefits of the procedure and the sedation options and risks were discussed with the patient. All questions were answered, and informed consent was obtained. Prior Anticoagulants: The patient has taken no previous anticoagulant or antiplatelet agents. ASA Grade Assessment: Per anesthesia. After reviewing the risks and benefits, the patient was deemed in satisfactory condition to undergo the procedure. After obtaining informed consent, the endoscope was passed under direct vision. Throughout the procedure, the patient's blood pressure, pulse, and oxygen saturations were monitored continuously. The Endoscope was introduced through the mouth, and advanced to the second part of duodenum. The upper GI endoscopy was accomplished without difficulty. The patient tolerated the procedure well. Scope In: 10:57:33 AM Scope Out: 11:10:52 AM Total Procedure Duration Time 0 hours 13 minutes 19 seconds Findings: The Z-line was variable and was found 40 cm from the incisors. The examined duodenum was normal. The patient was placed in the supine position for PEG placement. The stomach was insufflated to appose gastric and abdominal shipley. A site was located in the body of the stomach with excellent transillumination for placement. The abdominal wall was marked and prepped in a sterile manner. The area was anesthetized with 4 mL of 1% lidocaine. The trocar needle was introduced through the abdominal wall and into the stomach under direct endoscopic view. A snare was introduced through the endoscope and opened in the gastric lumen. The guide wire was passed through the trocar and into the open snare. The snare was closed around the guide wire. The endoscope and snare were removed, pulling the wire out through the mouth. A skin incision was made at the site of needle insertion. The externally removable 20 Fr Bard gastrostomy tube was lubricated. The G-tube was tied to the guide wire and pulled through the mouth and into the stomach. The trocar needle was removed, and the gastrostomy tube was pulled out from the stomach through the skin. The external bumper was attached to the gastrostomy tube, and the tube was cut to remove the guide wire. The final position of the gastrostomy tube was confirmed by relook endoscopy, and skin marking noted to be 4 cm at the external bumper. The final tension and compression of the abdominal wall by the PEG tube and external bumper were checked and revealed that the bumper was loose and lightly touching the skin. The feeding tube was capped, and the tube site cleaned and dressed. Impression: - Z-line variable, 40 cm from the incisors. - Normal examined duodenum. - An externally removable PEG placement was successfully completed. - No specimens collected. Recommendation: - Discharge patient to home. - Resume previous diet. - Continue present medications. Procedure Code(s): --- Professional --- 36723, Esophagogastroduodenoscopy, flexible, transoral; with directed placement of percutaneous gastrostomy tube Diagnosis Code(s): --- Professional --- K22.8, Other specified diseases of esophagus R13.10, Dysphagia, unspecified CPT copyright 2017 [employer]. All rights reserved. The codes documented in this report are preliminary and upon product manager financial services review may be revised to meet current compliance requirements. MD Jeny Hunt MD 02/09/2021 11:18:20 AM This report has been signed electronically. Number of Addenda: 0 Note Initiated On: 02/09/2021 10:45 AM
--- NOTE | 2021-02-09 11:19 | OP.CCLET_ITS ---
02/09/2021 Elijah Granados Re : Upper GI endoscopy procedure for Akosua Granados This procedure was performed on Tuesday, February 09, 2021. My impressions and recommendations are as follows: Impressions : - Z-line variable, 40 cm from the incisors. - Normal examined duodenum. - An externally removable PEG placement was successfully completed. - No specimens collected. Recommendations : - Discharge patient to home. - Resume previous diet. - Continue present medications. My findings are described in the full procedure note, which is enclosed. If I can be of further assistance, please feel free to contact me at Doctor phone number(s): , Work: . Sincerely, MD Jeny Hunt MD 02/09/2021 11:18:20 AM This report has been signed electronically.
== END 2021-02-09 12:59 | disposition home or self-care (01) ==
LOC: EN 08:40 → AC 08:42
PROVIDERS: PCP Family Medicine; Referring Provider Surgery; Visit Provider Surgery
PROC: 0DJ08ZZ Inspection of Upper Intestinal Tract, Via Natural or Artificial Opening Endoscopic (ICD-10-PCS; CPT 43235; principal; 2021-02-09 10:10)
DX: R13.10 Dysphagia, unspecified (principal); K21.9 Gastro-esophageal reflux disease without esophagitis; C44.519 Basal cell carcinoma of skin of other part of trunk; R47.02 Dysphasia; F03.90 Unspecified dementia, unspecified severity, without behavioral disturbance, psychotic disturbance, mood disturbance, and anxiety; F32.A Depression, unspecified; E11.9 Type 2 diabetes mellitus without complications; I10 Essential (primary) hypertension; Z86.718 Personal history of other venous thrombosis and embolism; Z79.84 Long term (current) use of oral hypoglycemic drugs; Z79.899 Other long term (current) drug therapy
CPT/HCPCS: 43246; 82962; 87426; 97802; C9803; J7120; A4216; J2405

== ENCOUNTER → 2021-04-11 14:44 | Outpatient (CLI) | payer MEDICARE, OTHER, SELFPAY ==
[2021-04-11 18:18] LABS: CRP 5.17 mg/L (0.0-3.0)
[2021-04-13 16:09] LABS: Endomysial Antibody IgA Negative (Negative)
[2021-04-13 16:20] LABS: Immunoglobulin A 255 mg/dL (64-422); t-Transglutaminase IgA <2 U/mL (0-3)
== END ==
PROVIDERS: PCP Family Medicine; Referring Provider Internal Medicine Gastroenterology; Visit Provider Internal Medicine Gastroenterology
DX: R19.7 Diarrhea, unspecified (principal)
CPT/HCPCS: 36415; 82784; 83516; 86140; 86255

== ENCOUNTER 2021-07-26 11:21 | Outpatient (CLI) | payer MEDICARE, OTHER, SELFPAY ==
--- NOTE | 2021-07-26 10:00 | LES_PTH ---
PATIENT: ARMINDA CHAVIRA LOC: [facility] U#:[id number] AGE/SX: 81/F ROOM: RE07/26/[address]: Dr. Jeny Kirby MD : 1940 BED: DIS: 07/26/2021 SPEC #: [id number] RECD: 07/26/21 11:16 STATUS: XENIA STEVEN #: [id number] ANDREA: 07/26/21 10:[address]: Jeny Kirby DEPT: SURGICAL PATHOLOGY RECD BY: Javier Padilla ENTERED: 07/26/21 11:36 SP TYPE: Lesion OTHR DR: Dr. Elijah Granados MD Tissues: Skin of upper extremity and shoulder Procedures: Surgery Specimen Level IV HEADER OPERATION: Re-excision of right clavicular lesion PRE-OP DIAGNOSIS: Basal cell carcinoma right clavicle TISSUE SUBMITTED: Right clavicle skin lesion, long stitch lateral to lesion, short stitch is superior MICROSCOPIC DIAGNOSIS Right clavicle skin lesion, re-excision: Negative for residual carcinoma. Dermal fibrosis consistent with scar. Mild actinic keratosis. BETZAIDA:kimberly 07/27/2021 COMMENT Please make reference to previous specimen ([id number]) lesion of right chest, biopsy with diagnosis of ?basal cell carcinoma.? MICROSCOPIC DESCRIPTION Slides are reviewed. GROSS DESCRIPTION Received in fixative is one container labeled with the patient's name and designated right clavicle lesion. The specimen consists of a sharif-white skin ellipse measuring 1.5 x 0.9 cm and up to 0.1 cm in thickness. The specimen is oriented by sutures as follows: short stitch - superior, long stitch - lateral. The specimen is inked as follows: superior margin - black, inferior margin - blue, lateral tip - yellow, medial tip - green. The specimen is serially sectioned and submitted entirely in one cassette. / BETZAIDA:kimberly 07/26/2021 TC:5 CPT: 86770
== END 2021-07-26 23:59 | disposition home or self-care (01) ==
LOC: LABSPEC 11:30
PROVIDERS: PCP Family Medicine; Referring Provider Surgery; Visit Provider Surgery
DX: C44.519 Basal cell carcinoma of skin of other part of trunk (principal)
CPT/HCPCS: 88305

== ENCOUNTER → 2024-07-23 | Outpatient (CLI) | payer MEDICARE, OTHER, SELFPAY | END | disposition home or self-care (01) | PROVIDERS: PCP Family Medicine; Referring Provider Physician Assistant; Visit Provider Physician Assistant | DX: R41.0 Disorientation, unspecified (principal) | CPT/HCPCS: 87086; 87088; 87186 ==

== ENCOUNTER 2024-11-24 13:14 | Emergency (ER) | payer MEDICARE, OTHER, SELFPAY ==
[2024-11-24] VITALS (8 sets, daily range): BP systolic 112–211; BP diastolic 53–93; PULSE 78–98; RESP 18–19; TEMP 36.6–37.2; O2SAT 97–100; BMI 24.0
--- NOTE | 2024-11-24 14:20 | EKG12_ITS ---
Test Reason : Blood Pressure : */* mmHG Vent. Rate : 79 BPM Atrial Rate : 79 BPM P-R Int : 194 ms QRS Dur : 74 ms QT Int : 366 ms P-R-T Axes : 77 43 57 degrees QTcB Int : 419 ms Normal sinus rhythm Normal ECG Confirmed by VANGIE DENNEY, KEMAL ([id number]), staff editor SARATH ISBELL ([id number]) on 11/25/2024 1:01:41 PM Referred By: Confirmed By: KEMAL VENCES MD
--- NOTE | 2024-11-24 14:21 | CT_ITS ---
PROCEDURE: BRAIN/HEAD WITHOUT CONTRAST 11/24/2024 REASON FOR EXAM: TRAUMA TECHNIQUE: BRAIN/HEAD WITHOUT CONTRAST Coronal and Sagittal reconstruction series were provided. One or more dose reduction techniques were used (e.g., Automated exposure control, adjustment of the mA and/or kV according to patient size, use of iterative reconstruction technique. RADIATION DOSE SUMMARY: CTDlvol: 44.99 mGy DLP: 818 mGycm COMPARISON: None FINDINGS: Brain: Low density in the periventricular white matter suggests mild chronic small vessel ischemic changes. CSF Spaces: Moderate generalized cerebral atrophy. Findings suggestive of normal pressure hydrocephalus. Sinuses/Mastoids: Clear at visualized levels Bones: CT/Brain/Head without Contrast IMPRESSION: CHRONIC CHANGES. NO ACUTE FINDINGS. Findings suggestive of normal pressure hydrocephalus. Reading Location: [id number]
--- NOTE | 2024-11-24 14:21 | CT_ITS ---
PROCEDURE: SPINE CERVICAL WITHOUT CONTRAS 11/24/2024 REASON FOR EXAM: TRAUMA TECHNIQUE: SPINE CERVICAL WITHOUT CONTRAS Coronal and Sagittal reconstruction series were provided. One or more dose reduction techniques were used (e.g., Automated exposure control, adjustment of the mA and/or kV according to patient size, use of iterative reconstruction technique. RADIATION DOSE SUMMARY: CTDlvol: 14.02 mGy DLP: 294.93 mGycm COMPARISON: None FINDINGS: Alignment: Straightening of the normal cervical lordosis. Vertebrae: Spondylosis. Soft Tissues: Calcification of the carotid bifurcations. Other: C1-2: Unremarkable C2-3: Mild degree of disc space narrowing. No fracture is seen. C3-4: Mild degree of disc space narrowing. Central posterior spondylosis causing minimal deformity of the anterior central portion of the thecal sac. C4-5: Mild degree of disc space narrowing. Facet joint osteoarthritis and hypertrophy. Uncovertebral arthrosis. Mild bilateral neural foraminal stenosis. C5-6: Moderate degree of disc space narrowing. Facet joint osteoarthritis. Moderate degree of left neural foraminal stenosis. C6-7: Marked degree of disc space narrowing. Spondylosis. No significant stenosis seen. C7-T1: CT/Spine Cervical without Contras IMPRESSION: DEGENERATIVE CHANGES OF THE CERVICAL SPINE. NO EVIDENCE OF SIGNIFICANT OSSEOUS CENTRAL CANAL OR NEURAL FORAMINAL STENOSIS. Reading Location: [id number]
--- NOTE | 2024-11-24 14:22 | EX.ED.DYSGE1 ---
HPI History of Present Illness Chief Complaint: Complaint Narrative Narrative: Patient is a 84-year-old female with past medical history of dementia, diabetes, GERD, IBS, hypertension, CVA who presented to the emergency department with a chief complaint of concern for urinary tract infection. According to the son at bedside he believes that she has a UTI as she fell a few days ago he states that he is unsure exactly when he fell as she is in assisted living and notes that she is seeing things prompting him to bring her here for further evaluation management. In triage notes it says that she has had lots of falls and when inquiring about this he states that that is why her and her are in assisted living now and notes that I think the most recent one was the other day. Patient states that she has not any blood thinning medications and son also believes that she is not either. He states that he she is not on any antibiotics currently. [facility] Medical History Dementia History of renal disease Pressure ulcer Diabetes Uses wheelchair Pulmonary embolism Gastric reflux Nasogastric tube present Wears glasses Wears dentures Cancer Abrasion Walker as ambulation aid Anemia DVT (deep venous thrombosis) Back pain Difficulty swallowing History of IBS Non-smoker Shortness of breath on exertion Eyelid retraction of left eye Hypertension Cerebrovascular disease Cervical lymphadenopathy Tonsillar mass Depression Diabetes Gastroesophageal reflux Home Medications ?Medication ?Instructions ?Recorded ?Last Taken ?Type loperamide 2 mg capsule 4 mg PO PRN Diarrhea 05/25/20 Unknown History atenolol 50 mg tablet 50 mg PO DAILY ##0 05/28/20 02/09/21 07:30 Rx cholestyramine (with sugar) 4 gram 4 g PO DAILY DIARRHEA 12/22/20 Unknown History powder for susp in a packet acetaminophen 325 mg tablet 650 mg PO Q4H PRN fever or pain 11/24/24 Unknown History cephalexin 500 mg capsule 500 mg PO BID 5 days #10 caps 11/24/24 Unknown Rx cholecalciferol (vitamin D3) 1,250 1,250 mcg PO QWEEK SUPPLEMENT 11/24/24 Unknown History mcg (50,000 unit) capsule magnesium hydroxide 400 mg/5 mL 30 ml PO DAILY PRN constipation 11/24/24 Unknown History oral suspension (Dulcolax (magnesium hydroxide)) quetiapine 25 mg tablet 25 mg PO QHS DEMENTIA WITH DELIRIUM 11/24/24 Unknown History sennosides 8.6 mg tablet (senna) 8.6 mg PO BID PRN PRN constipation 11/24/24 Unknown History Allergy/AdvReac Type Severity Reaction Status Date / Time No Known Allergies Allergy Verified 11/24/24 13:16 Family History Sister Cancer Surgical History Hx of colonoscopy Hx of bilateral cataract extraction History of hysterectomy History of total colectomy Social History adopted: No household members: spouse housing: house number of children: 2 current occupational status: retired current occupational exposures/hazards: No Smoking Status: Never smoker second hand exposure: No alcohol intake: never substance use type: does not use ROS ROS ED ROS Narrative Constitutional: Denies any fever, chills, lightness, dizziness Eyes: Patient states that she has poor vision specifically out of her right eye which is chronic for her not new Cardiovascular: Denies chest pain Respiratory: Denies shortness of breath Abdomen: Denies abdominal pain nausea vomit diarrhea : Concern for UTI as noted above Neurological: Denies any numbness, wheeze, tingling Musculoskeletal: Complaining of some neck pain denies back pain Skin: States that she has abrasion to the front of her nose from the fall EXAM Physical Exam Narrative Exam Narrative: General: Patient lying in bed rest comfortably did not appear to be acute distress Head: Atraumatic, normocephalic Eyes: PERRL bilaterally, EOMI blood, no conjunctival injection noted Neck: Soft, supple, trachea midline, no tenderness palpation midline of the cervical spine Cardiovascular: Regular rate and rhythm Respiratory: Clear to auscultation bilaterally Abdomen: Soft, nondistended, no tenderness palpation Musculoskeletal: Patient moving all extremities joints taken through full range of motion bony prominences palpated no pain elicited Extremities: +4/5 strength noted in the bilateral upper and lower extremities Neurological: Patient follow commands knew that she was at [facility] Skin: Warm, dry, intact patient does have an abrasion that is well-healing on the tip of her nose and her forehead no concern for infection at this point time this is well scabbed over Const Vital Signs: 11/24/24 13:14 11/24/24 14:14 11/24/24 15:24 Temperature 98.3 F 98 F Temperature Source Oral Oral Pulse Rate 83 80 88 Respiratory Rate 19 H 19 H 18 Blood Pressure 195/53 H 211/87 H Blood Pressure Mean 100 128 Pulse Ox 97 100 98 Oxygen Delivery Method Room Air Room Air Room Air 11/24/24 16:00 11/24/24 17:00 11/24/24 17:08 Temperature 98.6 F 98.9 F Temperature Source Oral Oral Pulse Rate 78 80 Respiratory Rate 18 18 Blood Pressure 112/70 211/81 H 176/66 H Blood Pressure Mean 84 124 102 Pulse Ox 99 99 Oxygen Delivery Method Room Air Room Air MDM MDM MDM Narrative Medical decision making narrative: Patient is a 84-year-old female who presents to the emergency department concern for a urinary tract infection per son at bedside. On the differential diagnosis includes but not limited to UTI, pyelonephritis, electrolyte abnormality, intracranial hemorrhage, cervical spine fracture, ACS. Once workup is obtained reviewed she will be reevaluated. Patient be given 1 L of IV fluids. CBC was reviewed showed a white blood count is normal at 8.3, hemoglobin 10.6 which is stable, plate count 277. Patient sodium was 142, potassium normal 4.7, creatinine was 1.49. Patient's AST and ALT were normal at 20 and 8 respectively. Patient's urinalysis showed 25 occult blood 100 leukocyte esterase negative nitrates 5-10 white cells with rare bacteria this was sent for culture we will give her a gram of Rocephin she will be placed on Keflex until cultures return. Patient CT cervical spine was reviewed showed degenerative changes no evidence of significant osseous central canal or neural foraminal stenosis. Patient CT and brain reviewed showed findings suggestive of normal pressure hydrocephalus. Discussed this with the patient's son at bedside and he notes that they have a appointment scheduled with [facility] neurosurgery in December for this. He states that since this is a significant amount of time away he would like another referral which she will give him a referral to Dr. Amin neurosurgery. They are encouraged to return with worsening symptoms or concerns. Patient is agreeable to plan as well as son at bedside all question concerns answered she is discharged home in stable condition. Lab Data Labs: Laboratory Results - last 24 hr 11/24/24 11/24/24 14:52 16:20 WBC 8.3 RBC 3.48 L Hgb 10.6 L Hct 32.3 L MCV 92.8 MCH 30.5 MCHC 32.8 RDW Std Deviation 46.7 H RDW Coeff of Brisa 13.7 Plt Count 277 MPV 10.4 Immature Gran % (Auto) 0.400 Neut % (Auto) 69.3 Lymph % (Auto) 19.4 [place] % (Auto) 8.2 Eos % (Auto) 2.3 Baso % (Auto) 0.4 Absolute Neuts (auto) 5.8 Absolute Lymphs (auto) 1.61 Nucleated RBC % 0 Sodium 142 Potassium 4.7 Chloride 108 Carbon Dioxide 22.0 Anion Gap 12 BUN 32 H Creatinine 1.49 H Estim Creat Clear Calc 24.84 L Est GFR (MDRD) Non-Af 34 L BUN/Creatinine Ratio 21.7 H Glucose 327 H Calcium 9.1 Total Bilirubin 0.33 Direct Bilirubin 0.11 AST 20 ALT 8 Alkaline Phosphatase 96 Total Protein 7.6 Albumin 3.6 Globulin 4.0 Urine Color Straw Urine Clarity Sl. Cloudy Urine pH 6.0 Ur Specific [place] 1.020 Urine Protein 500 H Urine Glucose (UA) 250 H Urine Ketones Negative Urine Occult Blood 25 H Urine Nitrite Negative Urine Bilirubin Negative Urine Urobilinogen Normal Ur Leukocyte Esterase 100 H Urine RBC 0-5 SEEN Urine WBC 5-10 SEEN Ur Squamous Epith Cells 10-25 SEEN Urine Bacteria RARE Hyaline Casts 0-5 SEEN Urine Mucus 0 SEEN Radiography Diagnostic Testing: Clinical Impression(s) from Imaging Studies Brain CT 11/24/24 14:21 IMPRESSION: CHRONIC CHANGES. NO ACUTE FINDINGS. Findings suggestive of normal pressure hydrocephalus. Reading Location: [id number] Cervical Spine CT 11/24/24 14:21 IMPRESSION: DEGENERATIVE CHANGES OF THE CERVICAL SPINE. NO EVIDENCE OF SIGNIFICANT OSSEOUS CENTRAL CANAL OR NEURAL FORAMINAL STENOSIS. Reading Location: [id number] Discharge Plan Triage Chief Complaint: Complaint ED Provider: Rolando Franco Dx/Rx/DC Orders Clinical Impression: UTI (urinary tract infection), Hypertension, Generalized weakness, Fall Prescriptions: New cephalexin 500 mg capsule 500 mg PO BID 5 Days Qty: 10 0RF No Action loperamide 2 MG capsule 4 mg PO PRN Patient Comments: TAKE 2 CAPSULES BY MOUTH 1 HOUR PRIOR TO MEALS FOR DIARRHEA Rx Instructions: 1 TABLET NEEDED FOR EACH ADDITIONAL LOOSE STOOL NOT TO EXCEED 8 TABLETS IN A 24HR PERIOD atenolol 50 MG tablet 50 mg PO DAILY Qty: 0 0RF cholestyramine (with sugar) 4 gram Powder In Packet 4 g PO DAILY cholecalciferol (vitamin D3) 1,250 mcg (50,000 unit) capsule 1,250 mcg PO QWEEK quetiapine 25 mg tablet 25 mg PO QHS sennosides [senna] 8.6 mg tablet 8.6 mg PO BID PRN PRN (Reason: constipation) acetaminophen 325 mg tablet 650 mg PO Q4H PRN (Reason: fever or pain) magnesium hydroxide [Dulcolax (magnesium hydroxide)] 400 mg/5 mL suspension 30 ml PO DAILY PRN (Reason: constipation) Primary Care Provider: Maria De Jesus Salvador Referrals: Maria De Jesus Salvador, PA-C [Primary Care Provider] - Activity Restrictions/Additional Instructions: Follow-up with neurosurgery that you are already scheduled with at [facility] or you can reach out to Dr. Amin at [facility] [address] [address]. Phone number [phone] take antibiotics as prescribed follow-up on urine culture. Return with worsening symptoms or any concerns. Print Language: [place] Disposition Disposition: Home, Self Care
[2024-11-24 15:12] LABS: Hematocrit 32.3 % (37-47); Hemoglobin 10.6 g/dL (12.0-15.0); Immature Granulocytes Count 0.030 X10^3/uL (0.0-0.0); Mean Corp Hgb Conc 32.8 g/dL (32-36); Mean Corpuscular Volume 92.8 fL (81-99); Mean Platelet Vol. 10.4 fl (6.2-12.0); NRBC Flagged by Analyzer 0 % (0-5); Platelet Count 277 K/mm3 (150-450); RBC Distribution Width CV 13.7 % (11.6-14.6); RBC Distribution Width SD 46.7 fl (35.1-43.9); Red Blood Count 3.48 M/mm3 (4.2-5.4); White Blood Count 8.3 K/mm3 (4.4-11.0)
[2024-11-24 15:57] LABS: AST(SGOT) 20 U/L (<=31); Alanine Aminotransfer ALT/SGPT 8 U/L (<=34); Albumin, Serum 3.6 g/dL (3.4-4.8); Alkaline Phosphatase 96 U/L (35-104); Anion Gap 12 (5-15); BUN 32 mg/dL (4-19); BUN/Creat Ratio 21.7 RATIO (10-20); Bilirubin, Direct 0.11 mg/dL (0.00-0.30); Calcium,Total 9.1 mg/dL (7.6-11.0); Carbon Dioxide 22.0 mmol/L (21.0-32.0); Chloride 108 mmol/L (98-108); Estimated Creatinine Clearance 24.84 ml/min (50-250); Globulin 4.0 g/dL (2.2-4.2); Glucose 327 mg/dL (70-99); Potassium 4.7 mmol/L (3.3-5.1)
[2024-11-24] MEDS: 0.9% Normal Saline (1000mL) 1,000 ML 999 ML IV (16:07)
[2024-11-24 16:25] LABS: Mucous, Urine 0 SEEN /hpf (<or=2+)
[2024-11-24 16:34] LABS: Color, Urine Straw (Yellow); Glucose, Dipstick 250 mg/dl (Normal); Ketone-Dipstick Negative (Negative); Leukocyte Esterase-Dipstick 100 /ul (Negative); Nitrite-Dipstick Negative (Negative); Occult Blood-Urine 25 /ul (Negative); Protein-Dipstick 500 mg/dl (Negative); Specific Gravity, Urine 1.020 (1.002-1.030); Urine Bilirubin Dipstick Negative (Negative)
[2024-11-24 17:20] LABS: Red Blood Cells-Urine 0-5 SEEN /hpf (0-5); Squamous Epithelial Cells - UA 10-25 SEEN /hpf (5-10)
== END 2024-11-24 18:47 | disposition home or self-care (01) ==
PROVIDERS: Emergency Provider Emergency Medicine; PCP Family Medicine; Visit Provider Emergency Medicine
DX: N39.0 Urinary tract infection, site not specified (principal); F03.90 Unspecified dementia, unspecified severity, without behavioral disturbance, psychotic disturbance, mood disturbance, and anxiety; E11.9 Type 2 diabetes mellitus without complications; R53.1 Weakness; Z90.710 Acquired absence of both cervix and uterus; I10 Essential (primary) hypertension; Z86.73 Personal history of transient ischemic attack (TIA), and cerebral infarction without residual deficits; Z79.899 Other long term (current) drug therapy; Z98.41 Cataract extraction status, right eye; Z98.42 Cataract extraction status, left eye; Z90.49 Acquired absence of other specified parts of digestive tract; W19.XXXA Unspecified fall, initial encounter; Y92.099 Unspecified place in other non-institutional residence as the place of occurrence of the external cause
CPT/HCPCS: 70450; 72125; 80048; 80076; 81001; 85025; 87077; 87086; 87088; 87186; 93005; 96361; 96365; 99283; A4216